=== PATIENT | male | born 1955 | race Caucasian/White ===

== ENCOUNTER 2023-11-21 19:23 | Inpatient (IN) | payer MEDICARE, OTHER ==
[~2023-11-21] VITALS: Ht 180.3 cm; Wt 95.8 kg
[2023-11-21 22:21] LABS: Basophils # (auto) 0.1 10 ^3/uL (0-0.2); Basophils % (auto) 2.2 % (0.0-2.0); Eosinophils # (auto) 0.2 10 ^3/uL (0-0.8); Eosinophils % (auto) 5.7 % (0.0-7.0); Hematocrit 28.7 % (41.0-53.0); Hemoglobin 9.3 g/dL (13.5-17.5); Lymphocytes # (auto) 0.3 10 ^3/uL (0.4-5.4); Lymphocytes % (auto) 9.4 % (10.0-50.0); Mean Corpuscular Hemoglobin 31.8 pg (28.0-32.0); Mean Corpuscular Hgb Conc. 32.5 g/dL (32.0-36.0); Mean Corpuscular Volume 97.9 fL (80.0-100.0); Monocytes # (auto) 0.5 10 ^3/uL (0-1.3); Monocytes % (auto) 13.9 % (0.0-12.0); Neutrophils # (auto) 2.4 10 ^3/uL (1.6-8.6); Neutrophils % (auto) 68.8 % (37.0-80.0); Nucleated Red Blood Cells % 0.2 %; Platelet Count (auto) 113 10^3/uL (140-450); Red Blood Cells 2.93 10^6/uL (4.5-5.90); White Blood Cell 3.5 10^3/uL (4.4-10.8)
[2023-11-21 22:35] LABS: Alanine Aminotransferase 11 U/L (7-40); Albumin 4.1 g/dL (3.2-4.8); Alkaline Phosphatase 74 U/L (46-116); Anion Gap 9 (5-15); Aspartate Aminotransferase 12 U/L (13-40); BUN/Creatinine Ratio 12.6 (10.0-20.0); Blood Urea Nitrogen 66 mg/dL (9-23); Calcium 10.1 mg/dL (8.7-10.4); Carbon Dioxide 30 mmol/L (20-31); Chloride 96 mmol/L (98-107); Glucose 119 mg/dL (74-106); Potassium 3.7 mmol/L (3.5-5.1); Sodium 135 mmol/L (136-145)
[2023-11-21 22:36] LABS: Bilirubin, Total 0.2 mg/dL (0.2-1.0); Total Protein 6.2 g/dL (5.7-8.2)
[2023-11-21 23:49] VITALS: PULSE 85; O2SAT 97
[2023-11-22] MEDS ORDERED: DEXTROSE (50%) 50ML SYRG IV PRN (04:30)
[2023-11-22] MEDS ORDERED: ACETAMINOPHEN 325 MG TAB PO PRN (04:30)
[2023-11-22] MEDS ORDERED: ONDANSETRON HCL 4 MG/2 ML VIAL IV PRN (04:30)
[2023-11-22] MEDS: InsuLIN REG 1unit/0.01ml Soln (100units/ml) SC SCH (07:00)
[2023-11-22] MEDS: ACCU-CHEK COMFORT CURVE STRIP VI SCH (07:10)
[2023-11-22 08:16] VITALS: PULSE 80; O2SAT 97
[2023-11-22] MEDS ORDERED: VALSARTAN 80 MG TAB PO SCH (10:00)
[2023-11-22] MEDS ORDERED: SACUBITRIL-VALSARTAN 24mg/26mg TAB PO SCH (10:00)
[2023-11-22] MEDS: CARVEDILOL 3.125 MG TAB PO SCH (10:14)
[2023-11-22] MEDS: CLOPIDOGREL BISULFATE 75 MG TAB PO SCH (10:15)
[2023-11-22] MEDS: ISOSORBIDE DINITRATE 10 MG TAB PO SCH (10:15)
[2023-11-22] MEDS: APIXABAN 5 MG TAB PO SCH (10:15)
[2023-11-22] MEDS: PIPERACILLIN-TAZOB 3.375GM 100 ML IV SCH (15:02)
[2023-11-22 19:45] VITALS: PULSE 74; RESP 20; O2SAT 90
[2023-11-22] MEDS: ATORVASTATIN 20 MG TAB PO SCH (21:40)
[2023-11-22 22:00] VITALS: BP 168/81; PULSE 68; RESP 68; TEMP 98.2; O2SAT 96
[2023-11-22 23:13] VITALS: RESP 16; O2SAT 95
[2023-11-22] MEDS ORDERED: ISOS20TA5 PO (23:25)
[2023-11-22] MEDS ORDERED: HYDR100T10 PO (23:25)
[2023-11-22] MEDS ORDERED: NIFE1TAB30 PO (23:25)
[2023-11-22] MEDS ORDERED: FERR1TAB17 PO (23:25)
[2023-11-22] MEDS ORDERED: PANT40T PO (23:25)
[2023-11-22] MEDS ORDERED: CLOP75TA70 PO (23:25)
[2023-11-22] MEDS ORDERED: CARV6.2551 PO (23:25)
[2023-11-22] MEDS ORDERED: INSU100I61 (23:25)
[2023-11-22] MEDS ORDERED: ATOR-47 PO (23:25)
[2023-11-22] MEDS ORDERED: BUDE1AER4 INH (23:25)
[2023-11-22] MEDS ORDERED: INSU100I67 SC (23:25)
[2023-11-22] MEDS ORDERED: VALS1TAB58 PO (23:25)
[2023-11-22] MEDS ORDERED: NITR0.4S29 SL (23:25)
[2023-11-23] VITALS (8 sets, daily range): BP systolic 148–169; BP diastolic 64–90; PULSE 63–86; RESP 18; TEMP 97.3–98.3; O2SAT 94–97
[2023-11-23] MEDS ORDERED: AMINLIQ64 PO (00:04)
[2023-11-23] MEDS ORDERED: APIX5TAB PO (00:04)
[2023-11-23] MEDS ORDERED: IPRA0.00 IN (00:04)
[2023-11-23] MEDS ORDERED: SACU1TAB PO (00:04)
[2023-11-23] MEDS ORDERED: ACET325T82 PO (00:04)
[2023-11-23] MEDS ORDERED: ALLO100T PO (00:04)
[2023-11-23] MEDS ORDERED: B-CO-5 PO (00:04)
[2023-11-23] MEDS ORDERED: MELA3TAB27 PO (00:04)
[2023-11-23] MEDS ORDERED: ALBUAER3 IN (00:04)
[2023-11-23] MEDS ORDERED: MAGN400T40 PO (00:04)
[2023-11-23 06:09] LABS: Basophils # (auto) 0 10 ^3/uL (0-0.2); Basophils % (auto) 1.4 % (0.0-2.0); Eosinophils # (auto) 0.2 10 ^3/uL (0-0.8); Eosinophils % (auto) 6.6 % (0.0-7.0); Hematocrit 27.6 % (41.0-53.0); Hemoglobin 9.3 g/dL (13.5-17.5); Lymphocytes # (auto) 0.3 10 ^3/uL (0.4-5.4); Mean Corpuscular Hemoglobin 32.5 pg (28.0-32.0); Mean Corpuscular Hgb Conc. 33.5 g/dL (32.0-36.0); Mean Corpuscular Volume 96.9 fL (80.0-100.0); Monocytes # (auto) 0.4 10 ^3/uL (0-1.3); Monocytes % (auto) 14.1 % (0.0-12.0); Neutrophils # (auto) 2.1 10 ^3/uL (1.6-8.6); Neutrophils % (auto) 68.9 % (37.0-80.0); Nucleated Red Blood Cells % 0.1 %; Platelet Count (auto) 117 10^3/uL (140-450); Red Blood Cells 2.85 10^6/uL (4.5-5.90); Red Cell Distribution Width 15.9 % (11.8-14.3)
[2023-11-23 06:15] LABS: Anion Gap 7 (5-15); Carbon Dioxide 33 mmol/L (20-31); Chloride 98 mmol/L (98-107); Potassium 3.8 mmol/L (3.5-5.1); Sodium 138 mmol/L (136-145)
[2023-11-23 06:16] LABS: Calcium 10.5 mg/dL (8.7-10.4)
[2023-11-23 06:21] LABS: BUN/Creatinine Ratio 9.8 (10.0-20.0); Glucose 94 mg/dL (74-106)
[2023-11-23 06:41] LABS: Blood Urea Nitrogen 43 mg/dL (9-23)
[2023-11-23 09:28] LABS: Hepatitis B Surface Antigen Negative (Negative)
[2023-11-23] MEDS ORDERED: IOHEXOL 300 MG/ML 100ML BOTTLE IJ ONE ×2 (09:28→15:36)
[2023-11-23 09:49] LABS: Hepatitis A Ab IgM Negative; Hepatitis B Core IgM Negative
[2023-11-23 09:50] LABS: Hepatitis C Antibody Negative (Negative)
[2023-11-23] MEDS: MUPIROCIN 2% OINT 15gm or 22gm FOR MRSA NARES EACHNOSTRI SCH (22:00)
[2023-11-23] MEDS: PIPERACILLIN-TAZOB 2.25GM 50 ML IV SCH (22:00)
[2023-11-24] VITALS (8 sets, daily range): BP systolic 155–182; BP diastolic 82–97; PULSE 68–86; RESP 16–18; TEMP 97.6–98.3; O2SAT 95–98
[2023-11-24] MEDS ORDERED: SODIUM CHL 0.9% 1000 ML BAG XX ONE (07:00)
[2023-11-24 07:17] LABS: Hematocrit 26.2 % (41.0-53.0); Hemoglobin 8.7 g/dL (13.5-17.5)
[2023-11-24] MEDS: EPOETIN ALFA-EPBX 4,000 UNIT/ML VIAL SC ONE (22:54)
[2023-11-25 01:00] VITALS: BP 161/81; PULSE 69; RESP 17; TEMP 97.7; O2SAT 96
[2023-11-25 05:00] VITALS: BP 150/82; PULSE 74; RESP 18; TEMP 98.3; O2SAT 95
[2023-11-25 08:45] VITALS: BP 152/79; PULSE 67; RESP 19; TEMP 97.5; O2SAT 98
[2023-11-25 13:00] VITALS: BP 131/71; PULSE 66; RESP 19; TEMP 97.9; O2SAT 98
[2023-11-25 16:37] VITALS: BP 163/78; PULSE 57; RESP 18; TEMP 98.1; O2SAT 98
[2023-11-25 21:33] VITALS: BP 162/79; PULSE 61; RESP 15; TEMP 98.1; O2SAT 99
[2023-11-26 00:28] VITALS: BP 170/78; PULSE 60; RESP 13; TEMP 97.7; O2SAT 100
[2023-11-26 05:00] VITALS: BP 141/73; PULSE 69; RESP 15; TEMP 97.8; O2SAT 100
[2023-11-26 09:00] VITALS: BP 167/87; PULSE 78; RESP 19; TEMP 97.9; O2SAT 98
[2023-11-26 13:00] VITALS: BP 143/73; PULSE 57; RESP 17; TEMP 97.4; O2SAT 99
[2023-11-26 16:44] VITALS: BP 159/76; PULSE 59; RESP 18; TEMP 97.9; O2SAT 99
[2023-11-26 17:31] LABS: Basophils # (auto) 0.1 10 ^3/uL (0-0.2); Basophils % (auto) 2.1 % (0.0-2.0); Eosinophils # (auto) 0.2 10 ^3/uL (0-0.8); Eosinophils % (auto) 8.4 % (0.0-7.0); Hematocrit 26.8 % (41.0-53.0); Hemoglobin 8.7 g/dL (13.5-17.5); Lymphocytes # (auto) 0.3 10 ^3/uL (0.4-5.4); Lymphocytes % (auto) 8.7 % (10.0-50.0); Mean Corpuscular Hemoglobin 31.7 pg (28.0-32.0); Mean Corpuscular Hgb Conc. 32.3 g/dL (32.0-36.0); Mean Corpuscular Volume 98.2 fL (80.0-100.0); Monocytes # (auto) 0.3 10 ^3/uL (0-1.3); Monocytes % (auto) 11.4 % (0.0-12.0); Neutrophils # (auto) 2.1 10 ^3/uL (1.6-8.6); Neutrophils % (auto) 69.4 % (37.0-80.0); Platelet Count (auto) 119 10^3/uL (140-450); Red Blood Cells 2.73 10^6/uL (4.5-5.90); Red Cell Distribution Width 15.9 % (11.8-14.3)
[2023-11-26 17:42] LABS: Chloride 98 mmol/L (98-107); Potassium 4.5 mmol/L (3.5-5.1); Sodium 136 mmol/L (136-145)
[2023-11-26 17:43] LABS: Anion Gap 8 (5-15); Carbon Dioxide 30 mmol/L (20-31)
[2023-11-26 17:44] LABS: Calcium 10.2 mg/dL (8.7-10.4)
[2023-11-26 17:48] LABS: BUN/Creatinine Ratio 10.6 (10.0-20.0); Blood Urea Nitrogen 68 mg/dL (9-23); Glucose 148 mg/dL (74-106)
[2023-11-26 21:00] VITALS: BP 148/68; PULSE 98; RESP 60; O2SAT 99
[2023-11-27] VITALS (8 sets, daily range): BP systolic 136–198; BP diastolic 66–107; PULSE 59–80; RESP 16–19; TEMP 97.4–98.6; O2SAT 91–99
[2023-11-27 06:56] LABS: Hemoglobin 9.6 g/dL (13.5-17.5)
[2023-11-27] MEDS ORDERED: SODIUM CHL 0.9% 1000 ML BAG XX ONE (07:00)
[2023-11-27] MEDS: EPOETIN ALFA-EPBX 10,000 UNIT/1ML VIAL SC ONE (20:59)
[2023-11-28] VITALS (7 sets, daily range): BP systolic 137–164; BP diastolic 59–89; PULSE 59–81; RESP 17–19; TEMP 36.7; O2SAT 92–100
[2023-11-28 15:16] LABS: COVID19 ANTIGEN SOFIA FIA NEGATIVE (NEGATIVE)
[2023-11-29] MEDS ORDERED: SODIUM CHL 0.9% 1000 ML BAG XX ONE (07:00)
[2023-11-29] MEDS ORDERED: EPOETIN ALFA-EPBX 10,000 UNIT/1ML VIAL SC ONE (21:00)
== END 2023-11-28 18:55 | DRG 314 ==
LOC: EDBD 19:23 → ER 19:23 → OVERFLOW 11-22 04:38 → WEST WING 11-22 22:00
PROVIDERS: ADMIT Family Medicine; ATTEND Family Medicine
PROC: 5A1D70Z Performance of Urinary Filtration, Intermittent, Less than 6 Hours Per Day (ICD-10-PCS; principal; 2023-11-22)
PROC: 5A1D70Z Performance of Urinary Filtration, Intermittent, Less than 6 Hours Per Day (ICD-10-PCS; 2023-11-24)
PROC: 5A1D70Z Performance of Urinary Filtration, Intermittent, Less than 6 Hours Per Day (ICD-10-PCS; 2023-11-27)
DX: T82.510A Breakdown (mechanical) of surgically created arteriovenous fistula, initial encounter (principal); J15.69 Pneumonia due to other Gram-negative bacteria; J96.21 Acute and chronic respiratory failure with hypoxia; N18.6 End stage renal disease; I13.2 Hypertensive heart and chronic kidney disease with heart failure and with stage 5 chronic kidney disease, or end stage renal disease; E44.0 Moderate protein-calorie malnutrition; Y71.2 Prosthetic and other implants, materials and accessory cardiovascular devices associated with adverse incidents; E11.22 Type 2 diabetes mellitus with diabetic chronic kidney disease; D63.1 Anemia in chronic kidney disease; E83.39 Other disorders of phosphorus metabolism; Z20.822 Contact with and (suspected) exposure to COVID-19; N28.1 Cyst of kidney, acquired; I50.9 Heart failure, unspecified; K80.20 Calculus of gallbladder without cholecystitis without obstruction; N40.0 Benign prostatic hyperplasia without lower urinary tract symptoms; Z99.2 Dependence on renal dialysis; I25.2 Old myocardial infarction; Z80.8 Family history of malignant neoplasm of other organs or systems; Z68.29 Body mass index [BMI] 29.0-29.9, adult; Y92.89 Other specified places as the place of occurrence of the external cause
CPT/HCPCS: 36415; 71250; 74176; 74178; 80048; 80053; 80074; 82270; 82962; 83605; 85014; 85018; 85025; 86141; 87081; 87426; 90935; 93005; 93971; 97163; G0378; J1815; J2543

== ENCOUNTER 2024-01-21 04:53 | Inpatient (IN) | payer MEDICARE ==
[~2024-01-21] VITALS: Ht 180.3 cm; Wt 89.0 kg
[~2024-01-21 04:53] MED LIST: ACET325T82 PO; ALBUAER3 IN; ALLO100T PO; AMINLIQ64 PO; APIX5TAB PO; ATOR-47 PO; B-CO-5 PO; BUDE1AER4 INH; CARV6.2551 PO; CLOP75TA70 PO; FERR1TAB17 PO; HYDR100T10 PO; INSU100I61; INSU100I67 SC; IPRA0.00 IN; ISOS20TA5 PO; MAGN400T40 PO; MELA3TAB27 PO; NIFE1TAB30 PO; NITR0.4S29 SL; PANT40T PO; SACU1TAB PO
--- NOTE | 2024-01-21 05:03 | ECG ---
[facility] Test Date: 2024-01-21 Test Time: 04:58:45 Pat Name: KAMAR COVARRUBIAS Department: ER Room: 0238T Gender: M Carpenter Inspector: CHELY : 1955 Requested By: EMERGENCY EMERGENCY Order Number: [id number] Reading MD: Brandon ePdro Measurements Intervals [place] Rate: 95 P: 238 LA: 198 QRS: 16 QRSD: 122 T: -5 QT: 343 QTc: 431 Interpretive Statements Sinus or ectopic atrial rhythm LVH with IVCD and secondary repol abnrm Inferoposterior infarct, recent Lateral infarct, age indeterminate Electronically Signed On 01-24-2024 16:11:20 PST by Brandon Pedro Please click the below link to view image of tracing.
--- NOTE | 2024-01-21 05:12 | ED.PDOC ---
History of Present Illness HPI Comments 68-year-old male who came to ER via EMS due to generalized weakness. Patient does have history of hypertension, diabetes, mi, CHF, end-stage renal disease, on dialysis every Monday and Monday. For the past few hours, noted the patient appears to be generally weak, had multiple episodes of vomiting, and had passage of blackish stools. Denies any acute abdominal pain or fever. No acute chest pains or shortness of breath Chief Complaint: General Weakness Time Seen by MD: 05:12 Reviewed Notes: Nurses Notes Allergies: Coded Allergies: NO KNOWN ALLERGIES (Unverified , 11/21/23) Home Meds Reported Medications Albuterol Sulfate (VENTOLIN MDI) 90 Mcg Ih, 2 PUFF IN Q6HPRN PRN for SHORTNESS OF BREATH, INH 11/23/23 Acetaminophen (Apap) 325 Mg Tab, 500 MG PO TID, TAB 11/23/23 Magnesium Oxide (MAGNESIUM OXIDE) 400 Mg Tab, 400 MG PO DAILY, TAB 11/23/23 B-Complex W/ C & Folic Acid (Kamilla-Yannick) Tab, 1 TAB PO DAILY, TAB 11/23/23 Sacubitril-Valsartan (Entresto 24-26 mg) 1 Tab Tab, 1 TAB PO BID, TAB 11/23/23 Allopurinol (Allopurinol) 100 Mg Tab, 1 TAB PO BID 11/23/23 Melatonin (KP MELATONIN) 3 Mg Tab, 10 MG PO HS, TAB 11/23/23 Amino Acids-Protein Hydrolysat (PRO-STAT) Liq, 30 ML PO BID, LIQ 11/23/23 Ipratropium-Albuterol (Ipratropium [place]/Albut) 1 John John, 1 JOHN IN Q4HPRN PRN for SHORTNESS OF BREATH, ML 11/23/23 Apixaban Base (ELIQUIS) 5 Mg Tab, 1 TAB PO Q12HR 11/23/23 Ferric Citrate (Auryxia) 210 Mg Tab, 2 TAB PO DAILY 11/22/23 Pantoprazole Sodium Sesquihydr (Pantoprazole Sodium) 40 Mg Tab, 1 TAB PO DAILY 11/22/23 Hydralazine Hcl (Hydralazine Hcl) 100 Mg Tab, 1 TAB PO TID 11/22/23 Nifedipine (Nifedipine Er) 60 Mg Tab, 1 TAB PO DAILY 11/22/23 Nitroglycerin (NTROSTAT SUBLINGUAL) 0.4 Mg Sl, 0.4 MG SL PRN, TAB *MAY REPEAT EVERY 5 MINUTES X 3 TOTAL IF NO RELIEF, INITIATE ANALGESIC THERAPY. NOTIFY PHYSICIAN *Do not crush. 11/22/23 Atorvastatin Calcium (ATORVASTATIN CALCIUM) 80 Mg Tab, 1 TAB PO DAILY 11/22/23 Budesonide-Formoterol Fumarate (Budesonide/Formoterol Fum 160-4.5 Mcg/Act) 1 Aer Aer, 2 PUFF INH Q12HR 11/22/23 Isosorbide Dinitrate (Isosorbide Dinitrate) 20 Mg Tab, 1 TAB PO DAILY 11/22/23 Clopidogrel Bisulfate (CLOPIDOGREL) 75 Mg Tab, 1 TAB PO DAILY 11/22/23 Carvedilol (Carvedilol) 6.25 Mg Tab, 1 TAB PO BID 11/22/23 Insulin Aspart (Novolog Flexpen Relion) 100 Unit/Ml Inj, DAILY 2-10 UNITS PER SLIDING SCALE 11/22/23 Insulin Detemir (Levemir Flexpen) 100 Unit/Ml Inj, 5 UNITS SC DAILY 11/22/23 Information Source: Patient, Emergency Med Personnel Mode of Arrival: EMS Severity: Moderate Timing: Hours Duration: Since onset Past Medical History PAST MEDICAL HISTORY: CHF, DM, ESRD, HTN, [place] Surgical History: PTCA Surgical History (Other): Dialysis every Monday Family History Family History: Reviewed,noncontributory to illness Social History Smoker: Non-Smoker Alcohol: Denies ETOH Use Drugs: Denies Drug Use Lives In: Home Constitutional: reports: weakness; denies: chills, diaphoresis, fatigue, fever, malaise, sweats, others EENTM: denies: blurred vision, double vision, ear bleeding, ear discharge, ear drainage, ear pain, ear ringing, eye pain, eye redness, hearing loss, mouth pain, mouth swelling, nasal discharge, nose bleeding, nose congestion, nose pain, photophobia, tearing, throat pain, throat swelling, voice changes, others Respiratory: denies: cough, hemoptysis, orthopnea, SOB at rest, shortness of breath, SOB with excertion, stridor, wheezing, others Cardiovascular: denies: chest pain, dizzy spells, diaphoresis, Dyspnea on exertion, edema, irregular heart beat, left arm pain, lightheadedness, palpitations, PND, syncope, others Gastrointestinal: reports: melena, vomiting; denies: abdomen distended, abdominal pain, blood streaked bowels, constipated, diarrhea, dysphagia, difficulty swallowing, hematemesis, nausea, poor appetite, poor fluid intake, rectal bleeding, rectal pain, others Genitourinary: denies: burning, dysuria, flank pain, frequency, hematuria, incontinence, penile discharge, penile sore, pain, testicle pain, testicle swelling, urgency, others Neurological: denies: dizziness, fainting, headache, left sided numbness, left sided weakness, numbness, paresthesia, pre-existing deficit, right sided numbness, right sided weakness, seizure, speech problems, tingling, tremors, weakness, others Musculoskeletal: denies: back pain, gout, joint pain, joint swelling, muscle pain, muscle stiffness, neck pain, others Integumetry: denies: bruises, change in color, change in hair/nails, dryness, laceration, lesions, lumps, rash, wounds, others Allergic/Immunocompromised: denies: Difficulty Healing, Frequent Infections, Hives, Itching, others Hematologic/Lymphatic: denies: anemia, blood clots, easy bleeding, easy bruising, swollen glands, others Endocrine: denies: excessive hunger, excessive sweating, excessive thirst, excessive urination, flushing, intolerance to cold, intolerance to heat, unexplained weight gain, unexplained weight loss, others Psychiatric: denies: anxiety, bipolar disorder, depression, hopeless, panic disorder, schizophrenia, sleepless, suicidal, others Physical Exam General Appearance: No Apparent Distress, Normal HEENT: Normal ENT Inspection, Pharynx Normal, TMs Normal Neck: Full Range of Motion, Non-Tender, Normal, Normal Inspection Respiratory: Chest Non-Tender, Lungs Clear, No Accessory Muscle Use, No Respiratory Distress, Normal Breath Sounds Cardiovascular: No Edema, No JVD, No Murmur, No Gallop, Normal Peripheral Pulses, Regular Rate/Rhythm Breast Exam: Deferred Gastrointestinal: No Organomegaly, Non Tender, No Pulsatile Mass, Normal Bowel Sounds, Soft Genitalia: Deferred Pelvic: Deferred Rectal: Deferred Extremities: No calf tenderness, Normal capillary refill, Normal inspection, Normal range of motion, Non-tender, No pedal edema Musculoskeletal : Apperance: Normal Neurologic: Alert, equipment operator II-XII nml as Tested, No Motor Deficits, Normal Affect, Normal Mood, No Sensory Deficits Cerebellar Function: Normal Reflexes: Normal Skin: Dry, Normal Color, Warm Lymphatic: No Adenopathy Was a procedure done? Was a procedure done?: No Differential Dx Considerations may include: Anemia, electrolyte imbalance, end-stage renal disease, gastritis, GI bleed, congestive heart failure X-Ray, Labs, Meds, VS Vital Signs Date Time Temp Pulse Resp B/P (MAP) Pulse Ox O2 Delivery O2 Flow Rate FiO2 01/21/24 05:02 98.8 93 18 164/99 (120) 97 01/21/24 04:58 95 Lab Test 01/21/24 05:20 Range/Units White Blood Count Pending Red Blood Count Pending Hemoglobin Pending Hematocrit Pending Mean Corpuscular Volume Pending Mean Corpuscular Hemoglobin Pending Mean Corpuscular Hemoglobin Concent Pending Red Cell Distribution Width Pending Platelet Count Pending Mean Platelet Volume Pending Neutrophils (%) (Auto) Pending Lymphocytes (%) (Auto) Pending Monocytes (%) (Auto) Pending Basophils (%) (Auto) Pending Neutrophils # (Auto) Pending Lymphocytes # (Auto) Pending Monocytes # (Auto) Pending Prothrombin Time Pending Prothrombin Time INR Pending Activated Partial Thromboplast Time Pending Sodium Level Pending Potassium Level Pending Chloride Level Pending Carbon Dioxide Level Pending Anion Gap Pending Blood Urea Nitrogen Pending Creatinine Pending Glomerular Filtration Rate Calc Pending BUN/Creatinine Ratio Pending Serum Glucose Pending Calcium Level Pending Magnesium Level Pending Total Bilirubin Pending Aspartate Amino Transferase (AST) Pending Alanine Aminotransferase (ALT) Pending Alkaline Phosphatase Pending Total Protein Pending Albumin Pending Time of 1ST Reevaluation: 05:05 Reevaluation 1ST: Unchanged Time of 2ND Reevaluation: 05:30 Reevaluation 2ND: Unchanged Patient Education/Counseling: Diagnosis, Treatment Family Education/Counseling: No Family Present Departure 1 Departure Time of Disposition: 05:30 Impression: Primary Impression: Renal failure Additional Impressions: Vomiting and diarrhea Dehydration Disposition: ADMITTED INPATIENT Condition: Guarded Critical Care Note Critical Care Time?: Yes (35 min-critical care time only) Stability Stability form required: No Heart Score Heart Score: Heart Score Response (Comments) Value History Moderate Suspicious 1 EKG Repolarization Disturb 1 Age >65 2 Risk Factors >3 or Hx ASHD 2 Troponin Normal limit 0 Total 6 I personally scribed for RACHID ROBERTS MD ([email or web address]) on 01/21/24 at 05:12. Electronically submitted by Mk Kramer ([email or web address]). RACHID ROBERTS MD Jan 21, 2024 05:12
[2024-01-21] MEDS: ONDANSETRON HCL 4 MG/2 ML VIAL IV ONE (05:15)
[2024-01-21 05:34] LABS: Basophils # (auto) 0 10 ^3/uL (0-0.2); Basophils % (auto) 0.4 % (0.0-2.0); Eosinophils # (auto) 0.1 10 ^3/uL (0-0.8); Eosinophils % (auto) 1.3 % (0.0-7.0); Hematocrit 45.5 % (41.0-53.0); Hemoglobin 14.8 g/dL (13.5-17.5); Lymphocytes # (auto) 0 10 ^3/uL (0.4-5.4); Lymphocytes % (auto) 0.5 % (10.0-50.0); Mean Corpuscular Hemoglobin 31.6 pg (28.0-32.0); Mean Corpuscular Hgb Conc. 32.5 g/dL (32.0-36.0); Mean Corpuscular Volume 97.2 fL (80.0-100.0); Monocytes # (auto) 0.3 10 ^3/uL (0-1.3); Monocytes % (auto) 4.7 % (0.0-12.0); Neutrophils # (auto) 6.5 10 ^3/uL (1.6-8.6); Neutrophils % (auto) 93.1 % (37.0-80.0); Nucleated Red Blood Cells % 0.1 %; Platelet Count (auto) 137 10^3/uL (140-450); Red Blood Cells 4.68 10^6/uL (4.5-5.90); Red Cell Distribution Width 15.4 % (11.8-14.3)
[2024-01-21] MEDS: SODIUM CHLORIDE 0.9% 250 ML IV ONE (05:44)
[2024-01-21 05:51] LABS: INR 1.08 (0.9-1.15); Partial Thromboplastin Time 29.9 SEC (24.5-34.5); Prothrombin Time 11.4 sec (9.3-11.8)
[2024-01-21 06:08] VITALS: PULSE 100; RESP 17; O2SAT 97
[2024-01-21 06:19] LABS: Alanine Aminotransferase 30 U/L (7-40); Albumin 4.8 g/dL (3.2-4.8); Alkaline Phosphatase 115 U/L (46-116); Anion Gap 11 (5-15); Aspartate Aminotransferase 17 U/L (13-40); BUN/Creatinine Ratio 10.2 (10.0-20.0); Bilirubin, Total 0.4 mg/dL (0.2-1.0); Blood Urea Nitrogen 49 mg/dL (9-23); Calcium 11.3 mg/dL (8.7-10.4); Carbon Dioxide 28 mmol/L (20-31); Chloride 98 mmol/L (98-107); Glucose 139 mg/dL (74-106); Potassium 4.3 mmol/L (3.5-5.1); Sodium 137 mmol/L (136-145); Total Protein 7.7 g/dL (5.7-8.2)
--- NOTE | 2024-01-21 07:50 | DVHHP2 ---
History of Present Illness Reason for Visit: Generalized weakness History of Present Illness This 68-year-old male presents in the ED via EMS with a chief complaint of generalized weakness. The patient reports nausea and diarrhea started early this morning causing generalized weakness for which prompted the patient to call 911. The patient denies abdominal pain, hematemesis, or melena although patient states noted blackish stools. Past medical history of ESRD on HD MWF, CHF, CAD, hypertension, gout, and diabetes. Past Medical History As stated in HPI Past Surgical History PTCA Family History Reviewed, non-contributory to the management of this case. Past Social History The patient lives at home, denies smoking, alcohol or illicit drugs abuse. Review of Systems Constitutional: Yes: Weakness; No: Fever, Chills, Sweats, Malaise, Other Eyes: No: Pain, Vision change, Conjunctivae inflammation, Eyelid inflammation, Other, Redness ENT: No: Ear pain, Ear discharge, Nose pain, Nose discharge, Nose congestion, Mouth pain, Mouth swelling, Throat pain, Throat swelling, Other Respiratory: No: Cough, Dry, Shortness of breath, SOB with excertion, Wheezing, Hemoptysis, Pleuritic Pain, Sputum, Wheezing, Other Cardiovascular: No: Chest Pain, Palpitations, Orthopnea, Paroxysmal Noc. Dyspnea, Edema, Lt Headedness, Other Gastrointestinal: Nausea, Vomiting, Diarrhea; No: Abdominal Pain, Constipation, Melena, Hematochezia, Other Genitourinary: No Dysuria, No Frequency, No Incontinence, No Hematuria, No Retention, No Other Musculoskeletal: No: other, neck pain, shoulder pain, arm pain, back pain, hand pain, leg pain, foot pain Skin: No: Rash, Lesions, Jaundice, Bruising, Other Neurological: Weakness; No: Numbness, Incoordination, Change in speech, Confusion, Seizures, Other Allergies: Coded Allergies: NO KNOWN ALLERGIES (Unverified , 11/21/23) Exam Vital Signs Vital Signs Date Time Temp Pulse Resp B/P (MAP) Pulse Ox O2 Delivery O2 Flow Rate FiO2 01/21/24 07:02 98.1 109 16 125/76 (92) 97 98.1 01/21/24 06:08 Nasal Cannula* 2 28 General Appearance: Alert, Oriented X3, Cooperative, mild distress HEENT: Atraumatic, PERRLA, EOMI Respiratory: Clear to auscultation, Normal air movement Cardiovascular: Regular rate, Normal S1, Normal S2 Abdominal: Normal bowel sounds, Soft, No tenderness Extremities: No clubbing, Other (bilateral LE +1 edema) Skin: No rashes, No breakdown, No significant lesion Neuro: Normal speech, Normal tone Psych/Mental Status: Mental status NL Labs/Xrays Labs Test 01/21/24 05:20 Range/Units White Blood Count 7.0 4.4-10.8 10^3/uL Red Blood Count 4.68 4.5-5.90 10^6/uL Hemoglobin 14.8 13.5-17.5 g/dL Hematocrit 45.5 41.0-53.0 % Mean Corpuscular Volume 97.2 80.0-100.0 fL Mean Corpuscular Hemoglobin 31.6 28.0-32.0 pg Mean Corpuscular Hemoglobin Concent 32.5 32.0-36.0 g/dL Red Cell Distribution Width 15.4 H 11.8-14.3 % Platelet Count 137 L 140-450 10^3/uL Mean Platelet Volume 7.7 6.9-10.8 fL Neutrophils (%) (Auto) 93.1 H 37.0-80.0 % Lymphocytes (%) (Auto) 0.5 L 10.0-50.0 % Monocytes (%) (Auto) 4.7 0.0-12.0 % Eosinophils (%) (Auto) 1.3 0.0-7.0 % Basophils (%) (Auto) 0.4 0.0-2.0 % Neutrophils # (Auto) 6.5 1.6-8.6 10 ^3/uL Lymphocytes # (Auto) 0 L 0.4-5.4 10 ^3/uL Monocytes # (Auto) 0.3 0-1.3 10 ^3/uL Eosinophils # (Auto) 0.1 0-0.8 10 ^3/uL Basophils # (Auto) 0 0-0.2 10 ^3/uL Nucleated Red Blood Cells 0.1 % Prothrombin Time 11.4 9.3-11.8 sec Prothrombin Time INR 1.08 0.9-1.15 Activated Partial Thromboplast Time 29.9 24.5-34.5 SEC Sodium Level 137 136-145 mmol/L Potassium Level 4.3 3.5-5.1 mmol/L Chloride Level 98 98-107 mmol/L Carbon Dioxide Level 28 20-31 mmol/L Anion Gap 11 5-15 Blood Urea Nitrogen 49 H 9-23 mg/dL Creatinine 4.80 H 0.700-1.30 mg/dL Glomerular Filtration Rate Calc 12 >90 mL/min BUN/Creatinine Ratio 10.2 10.0-20.0 Serum Glucose 139 H 74-106 mg/dL Calcium Level 11.3 H 8.7-10.4 mg/dL Magnesium Level 2.0 1.6-2.6 mg/dL Total Bilirubin 0.4 0.2-1.0 mg/dL Aspartate Amino Transferase (AST) 17 13-40 U/L Alanine Aminotransferase (ALT) 30 7-40 U/L Alkaline Phosphatase 115 46-116 U/L Total Protein 7.7 5.7-8.2 g/dL Albumin 4.8 3.2-4.8 g/dL Assessment/Plan Assessment/Plan # Generalized weakness 2/2 nausea and diarrhea # Rule out Covid #Rule out GI bleed Admit to telemetry unit Hold antiplatelets/anti coag until FOBT PPI Check for COVID Check for occult C diff Antiemetics # ESRD on HD M/W/F Consult Dr. Valera for treatment # hypotension # CAD s/p PCI # CHF statins, plavix, Entresto Daily wt Strict I & O # COPD Med neb DVT and PPI prophylaxis Medical plan discussed with patient and RN Plan discussed with: Patient Date of Service: Jan 21, 2024 Billing Provider: TANIKA BOLANOS Common Visit Codes: [id number] INP/OBS CARE (HIGH) TANIKA BOLANOS Jan 21, 2024 07:50
[2024-01-21 07:53] VITALS: PULSE 113; RESP 21; O2SAT 96
[2024-01-21] MEDS ORDERED: ONDANSETRON HCL 4 MG/2 ML VIAL IV PRN (08:00)
[2024-01-21] MEDS ORDERED: DEXTROSE (50%) 50ML SYRG IV PRN (08:30)
[2024-01-21 09:01] LABS: Triglycerides 90 mg/dL (< 150)
[2024-01-21 09:02] LABS: LDL Cholesterol 45 mg/dL (< 100)
[2024-01-21 09:03] LABS: HDL Cholesterol 41 mg/dL (40-59)
[2024-01-21 09:04] LABS: Cholesterol 107 mg/dL (< 200)
--- NOTE | 2024-01-21 09:39 | DVH ---
CLINICAL INFORMATION: 68 years old, Male; shortness of breath. TECHNIQUE: Single AP portable chest radiograph was obtained. COMPARISON: None FINDINGS: Lungs: Low lung volumes. Possible small left pleural effusion with overlying atelectasis and consolid ation. Mild atelectasis in the right lung base.. Cardiac: Heart size is within normal limits. Pulmonary vasculature: Mildly prominent pulmonary vasculature. Mediastinum/arsalan: Unremarkable. Bones: No acute osseous abnormality identified. Other: No other significant findings. IMPRESSION: 1. Suspected small left pleural effusion with overlying atelectasis and consolidation. 2. Mild atelectasis in the right lung base. 3. Mildly prominent pulmonary vasculature May suggest a degree of pulmonary vascular congestion.
[2024-01-21] MEDS: PANTOPRAZOLE 40 MG TAB PO SCH (10:00)
[2024-01-21] MEDS ORDERED: APIXABAN 5 MG TAB PO SCH (10:00)
[2024-01-21] MEDS ORDERED: ENOXAPARIN SOD 40 MG/0.4 ML SYRINGE SC SCH (10:00)
[2024-01-21] MEDS ORDERED: CLOPIDOGREL BISULFATE 75 MG TAB PO SCH (10:00)
[2024-01-21] MEDS: Pro-Stat SF 30ml Vanilla PO SCH (10:00)
[2024-01-21] MEDS: ALBUTEROL SULF 2.5 MG/0.5ML(0.5%) NEB SOLN NEB PRN (10:35)
[2024-01-21] MEDS: IPRATROPIUM BROM 0.5 MG/2.5ML INH SOL NEB PRN (10:35)
[2024-01-21] MEDS: SACUBITRIL-VALSARTAN 24mg/26mg TAB PO SCH (10:41)
[2024-01-21] MEDS: PANTOPRAZOLE 40 MG/10 ML VIAL INJ IV SCH (10:41)
[2024-01-21] MEDS: ALLOPURINOL 100 MG TAB PO SCH (10:41)
[2024-01-21] MEDS: ACCU-CHEK COMFORT CURVE STRIP VI SCH (11:32)
[2024-01-21] MEDS: InsuLIN REG 1unit/0.01ml Soln (100units/ml) SC SCH (11:45)
[2024-01-21 14:30] VITALS: PULSE 91; RESP 17; O2SAT 95
[2024-01-21 14:40] VITALS: BP 106/60; PULSE 91; RESP 17; TEMP 98.3; O2SAT 94
--- NOTE | 2024-01-21 16:23 | DVHPN2 ---
Subjective No more nausea/vomiting/diarrhea Reviewed: Care Plan, H&P, Labs, Medications, Previous Orders, Radiology, Other (Consultation) Changes from previous H/P or p: Changes Objective Vitals Vital Signs Date Time Temp Pulse Resp B/P (MAP) Pulse Ox O2 Delivery O2 Flow Rate FiO2 01/21/24 14:40 98.3 91 17 106/60 94 2.0 28 98.3 01/21/24 14:30 Nasal Cannula* General Appearance: Alert, Oriented X3, Cooperative, No acute distress HEENT: Atraumatic Lungs: Other (Decreased air entry bilateral with occasional scattered crackles) Cardiovascular: Regular rate, Normal S1, Normal S2, No murmurs Abdomen: Normal bowel sounds, Soft, Other (Diffuse tenderness) Extremities: Other (Right arm AV fistula with good bruit/thrill) Neuro: Normal speech, Cranial nerves 3-12 NL Psych/Mental Status: Mental status NL, Mood NL Medications Current Medications Medications Dose Ordered Sig/Mckenzie Route Start Time Stop Time Status Last Admin Dose Admin Ondansetron HCl 4 mg Q4HP PRN IV 01/21/24 08:00 Diagnostic Test (Pha) 1 strip ACHS 01/21/24 11:30 01/21/24 11:32 1 STRIP Insulin Human Regular ACHS SC 01/21/24 11:30 01/21/24 11:45 2 UNITS Dextrose 50 ml UD PRN IV 01/21/24 08:30 Allopurinol 100 mg BID PO 01/21/24 10:00 01/21/24 10:41 100 MG Amino Acid Protein 30 ml BID PO 01/21/24 10:00 Pantoprazole Sodium 40 mg DAILY PO 01/21/24 10:00 Hold Sacubitril/ Valsartan 1 tab BID PO 01/21/24 10:00 01/21/24 10:41 1 TAB Atorvastatin Calcium 80 mg HS PO 01/21/24 22:00 Multivit/Ca Carb/ B Cmplx/FA/Prenat 1 tab DAILY PO 01/22/24 10:00 Patient Own Medication 2 puff Q12HR PO 01/21/24 22:00 Carvedilol 6.25 mg BID PO 01/21/24 22:00 Patient Own Medication 2 tab DAILY PO 01/22/24 10:00 Hydralazine HCl 100 mg TID PO 01/21/24 22:00 Insulin Glargine 5 units HS SC 01/22/24 22:00 Isosorbide Dinitrate 20 mg DAILY PO 01/22/24 10:00 Magnesium Oxide 400 mg DAILY PO 01/22/24 10:00 Melatonin 10 mg HS PO 01/21/24 22:00 Patient Own Medication 1 tab DAILY PO 01/21/24 10:00 UNV Pantoprazole Sodium 40 mg DAILY IV 01/21/24 10:00 01/21/24 10:41 40 MG Albuterol 2.5 mg Q4HPRN PRN NEB 01/21/24 08:45 01/21/24 10:35 2.5 MG Ipratropium [place] 0.5 mg Q4HPRN PRN NEB 01/21/24 08:45 01/21/24 10:35 0.5 MG Laboratory Results Laboratory Tests 01/21/24 05:20 Chemistry Test 01/21/24 05:20 Albumin 4.8 g/dL (3.2-4.8) Calcium Level 11.3 mg/dL (8.7-10.4) H Magnesium Level 2.0 mg/dL (1.6-2.6) Total Protein 7.7 g/dL (5.7-8.2) Coagulation Test 01/21/24 05:20 Prothrombin Time 11.4 sec (9.3-11.8) Prothrombin Time INR 1.08 (0.9-1.15) Activated Partial Thromboplast Time 29.9 SEC (24.5-34.5) Lipid panel Test 01/21/24 05:20 Cholesterol Level 107 mg/dL (< 200) HDL Cholesterol 41 mg/dL (40-59) Triglycerides Level 90 mg/dL (< 150) LFT Test 01/21/24 05:20 Alanine Aminotransferase (ALT) 30 U/L (7-40) Alkaline Phosphatase 115 U/L (46-116) Aspartate Amino Transferase (AST) 17 U/L (13-40) Total Bilirubin 0.4 mg/dL (0.2-1.0) HgA1c, TSH Test 01/21/24 05:20 Hemoglobin A1c 5.2 % A1C (<5.7) Labs and/or images reviewed: Labs reviewed by me, Image(s) reviewed by me Assessment/Plan Assessment/Plan A 68-year-old male patient; multiple comorbidities; who presented to the emergency department with chills, nausea, vomiting, and diarrhea. #Suspected abdominal infection in immunocompromised patient Ordered abdomen/pelvis CT without contrast Ordered blood cultures COVID-19 negative Stool studies pending Started on IV antibiotics Continue monitoring # ESRD on HD M// Dr. Valera is following; hemodialysis as per Nephrology Continue monitoring # CAD s/p PCI # hypertensive heart disease with congestive diastolic and systolic heart failure; not in exacerbation Continue statins, clopidogrel, and Entresto Daily weight with strict input and output Continue monitoring blood pressure and adjust antihypertensive medications accordingly # COPD; not in exacerbation; on home oxygen therapy 2 to 3 liter/minute via nasal cannula Continue oxygen therapy as needed Continue home nebulizers as indicated #Diabetes mellitus type 2; controlled with A1c of 5.2 % Continue home glargine Continue insulin sliding scale with hypoglycemia protocol Continue monitoring #Thrombocytopenia Chronic; unclear etiology No signs/symptoms of active bleeding Continue monitoring Goals of care discussed for 20 minutes; full code This medical document was created using an electronic medical record system with computerized dictation system. Although this document has been carefully reviewed, there might still be some phonetic and typographical errors. These areas are purely typographical due to imperfections of the software programs, and do not reflect any compromise in the patient's medical care. Plan discussed with: Patient, Other (Nurse) Date of Service: Jan 21, 2024 Billing Provider: JOSELO SCHMITT MD Common Visit Codes: [id number] INP/OBS CARE(HIGH) Secondary Visit Codes: [id number] CARE PLAN 30 MINUTES (20 minutes) JOSELO SCHMITT MD Jan 21, 2024 16:22
[2024-01-21 17:55] LABS: COVID19 ANTIGEN SOFIA FIA NEGATIVE (NEGATIVE)
[2024-01-21 18:50] VITALS: O2SAT 97
[2024-01-21 19:32] VITALS: PULSE 76; RESP 20; O2SAT 95
--- NOTE | 2024-01-21 21:39 | DVHINCON2 ---
DATE OF CONSULTATION: 01/21/2024 CONSULTING PHYSICIAN: Dr. Cedeno. REASON FOR CONSULTATION: Management of dialysis. HISTORY OF PRESENT ILLNESS: The patient is a 68-year-old gentleman who is one of our chronic dialysis patient who came to the hospital this morning complaining of one day of vomiting and diarrhea, possibly black stools. He was feeling very weak and decided to call the ambulance and came to the hospital. His last dialysis was on Monday. He denies any fever. No other complaints. PAST MEDICAL HISTORY: Significant for longstanding hypertension, diabetes, end-stage renal disease, congestive heart failure, coronary artery disease, hypertension, gout and anemia. SOCIAL HISTORY: The patient denies smoking cigarettes, drinking alcohol or using illicit drugs. MEDICATIONS: In the hospital include insulin, pantoprazole, albuterol, dextrose and Zofran. PHYSICAL EXAMINATION: VITAL SIGNS: Blood pressure is 119/68, heart rate 89, respirations 16, temperature 97. GENERAL: The patient is in no acute distress, alert and oriented x3. HEENT: Shows pale oral mucosa and conjunctivae. NECK: No jugular venous distention, palpable thyroid, or lymphadenopathy. LUNGS: Show diminished air entry at the bases. CARDIOVASCULAR: Shows regular rate. There is 2/6 systolic murmur. ABDOMEN: Soft, mildly distended. Bowel sounds are increased in intensity and frequency. There are no ascites. No organomegalies, no ascites. EXTREMITIES: Show no clubbing, cyanosis. There is trace edema. NEUROLOGIC: Nonfocal. LABORATORY FINDINGS: Sodium 137, potassium 4.3, bicarbonate 28, BUN 49, creatinine 4.8, glucose 139. Hemoglobin 14.8, white blood cell count 7. Chest x-ray was unremarkable except for very mild left pleural effusion, mild atelectasis. ASSESSMENT AND PLAN: 1. End-stage renal disease. The patient appears to be stable from the renal standpoint. There is no need for dialysis today. We will reevaluate him in the morning. He may or may not need dialysis tomorrow depending on his fluid balance since he had significant diarrhea and fluid losses and he has not been eating well. There is no immediate need for ultrafiltration at this time. 2. Gastroenteritis, rule out viral versus bacterial. Empiric antibiotic treatment. Rule out COVID. 3. History of diabetes. Continue with insulin. Home medications. 4. Hypertension. Currently, the patient is actually slightly hypotensive. We will hold his blood pressure medications. Provide him with gentle hydration with normal saline and intravenous fluids. Recommend to recheck basic metabolic panel tomorrow to decide if he needs dialysis tomorrow or maybe on Monday. Thank you for the consultation. MD LAYTON Pop/MATTHEW TID: [id number] RECEIPT: [id number]
[2024-01-21] MEDS: FORMOTEROL PO SCH (22:00)
[2024-01-21] MEDS: BUDESONIDE PO SCH (22:00)
[2024-01-21] MEDS: MELATONIN 5 MG TAB PO SCH (22:08)
[2024-01-21] MEDS: ATORVASTATIN 20 MG TAB PO SCH (22:09)
[2024-01-21] MEDS: CARVEDILOL 3.125 MG TAB PO SCH (22:10)
[2024-01-21] MEDS: hydrALAZINE HCL 25 MG TAB PO SCH (22:14)
[2024-01-21] MEDS: cefTRIAXone 1GM/50ML D5W 50 ML IV ONE (22:44)
[2024-01-21] MEDS: metroNIDAZOLE 500MG/100ML 100 ML IV ONE (23:15)
[2024-01-22] VITALS (10 sets, daily range): BP systolic 123–154; BP diastolic 32–58; PULSE 59–80; RESP 16–18; TEMP 97.6–98.3; O2SAT 92–97
[2024-01-22] MEDS: metroNIDAZOLE 500MG/100ML 100 ML IV SCH (06:00)
[2024-01-22 08:50] LABS: Alanine Aminotransferase 19 U/L (7-40); Albumin 3.6 g/dL (3.2-4.8); Alkaline Phosphatase 77 U/L (46-116); Anion Gap 11 (5-15); Aspartate Aminotransferase 16 U/L (13-40); BUN/Creatinine Ratio 9.4 (10.0-20.0); Bilirubin, Total 0.4 mg/dL (0.2-1.0); Calcium 10.2 mg/dL (8.7-10.4); Carbon Dioxide 22 mmol/L (20-31); Chloride 100 mmol/L (98-107); Glucose 98 mg/dL (74-106); Potassium 4.6 mmol/L (3.5-5.1)
[2024-01-22 08:54] LABS: Blood Urea Nitrogen 59 mg/dL (9-23); Sodium 133 mmol/L (136-145)
[2024-01-22 10:17] LABS: Hematocrit 39.9 % (41.0-53.0); Hemoglobin 12.7 g/dL (13.5-17.5); Mean Corpuscular Hemoglobin 30.9 pg (28.0-32.0); Mean Corpuscular Hgb Conc. 31.9 g/dL (32.0-36.0); Mean Corpuscular Volume 96.8 fL (80.0-100.0); Platelet Count (auto) 107 10^3/uL (140-450); Red Blood Cells 4.12 10^6/uL (4.5-5.90); Red Cell Distribution Width 15.5 % (11.8-14.3); White Blood Cell 2.2 10^3/uL (4.4-10.8)
[2024-01-22 10:19] LABS: Band Neutrophils % (manual) 0; Basophils % (manual) 0 (0.0-2.0); Blast Cells 0; Eosinophils % (manual) 0 (0-7); Metamyelocytes % 0; Myelocytes % 0; Promyelocytes % 0; Reactive Lymphocytes 0
[2024-01-22] MEDS: NIFEdipine ER 30 MG TAB PO SCH (10:29)
[2024-01-22] MEDS: MAGNESIUM OXIDE 400 MG TAB PO SCH (10:29)
[2024-01-22] MEDS: ISOSORBIDE DINITRATE 10 MG TAB PO SCH (10:30)
[2024-01-22] MEDS: B-COMPLEX W/ C & FOLIC ACID(NEPHROVITE TAB) PO SCH (10:30)
[2024-01-22 11:34] LABS: Lymphocytes % (manual) 18 (10.0-50.0); Monocytes % (manual) 8 (0-12); Platelet Estimate Decreased
--- NOTE | 2024-01-22 11:57 | DVH ---
Exam: CT CT AB PEL WO CON-NO ORAL OR IV History: Nausea, vomiting, diarrhea in immunocompromised patient. Comparison Study: CT CT AB PELVIS W WO CON-IV ONLY on DOS: 11/23/23, CT CT AB PEL WO CON-NO ORAL OR I V on DOS: 11/22/23 Technique: Multidetector spiral CT of the abdomen and pelvis was performed from lung bases to pubic symphysis. Imaging was performed without IV contrast. Axial, coronal and sagittal multiplanar reform ats were obtained from the axial data set by the technologist. Radiation dose : Abdomen/Pelvis: CTDIvol 12 mGy, DLP 843 mGy*cm. Findings: Evaluation of solid organs is limited due to lack of intravenous contrast use. Lung Bases: Atelectasis and consolidation in the visualized lung bases. Liver: The liver is normal in size. No focal lesions. Gallbladder and biliary Tree: Cholelithiasis noted without secondary findings of cholecystitis or rk iary obstruction. Spleen: Unremarkable Pancreas: The pancreas is grossly normal in appearance. Adrenal Glands: Unremarkable Kidneys: Kidneys are atrophic. There are coarse calcifications in the left kidney. There are bilate ral renal cysts including a hyperdense left renal cyst. No hydronephrosis. Bladder: Grossly unremarkable for degree of distention. Bowel: The stomach is grossly normal in appearance. Small bowel and colon are normal in caliber and d istribution. Normal appendix is visualized in the right lower quadrant without findings of appendici tis. Ascites: Absent Lymphadenopathy: No mesenteric, retroperitoneal or periportal lymphadenopathy. Abdominal wall and Mesentery: Colon containing umbilical hernia Vasculature: Calcified atherosclerotic disease. Pelvic Organs: Prostate is enlarged. Musculoskeletal: No aggressive focal bony lesions, acute fractures or dislocation. IMPRESSION: 1. No acute abdominal or pelvic findings. Cholelithiasis. Atrophic kidneys. Bilateral renal cysts. Coarse calcifications in the left kidney. No hydronephrosis. Colon containing umbilical hernia. No ev idence of obstruction. Prostatomegaly. Bibasilar atelectasis and consolidation. Radiation optimization: All CT scans at this facility use at least one of these dose optimization hay hniques: Automated exposure control mA and/or kV adjustment per patient size (includes targeted exams where dose is matched to clinical indication) or iterative reconstruction. HS:Y
--- NOTE | 2024-01-22 14:45 | DVHPN2 ---
Reviewed: Care Plan, H&P, Labs, Medications, Previous Orders, Radiology, Other (Consultation) Changes from previous H/P or p: No Changes Objective Vitals Vital Signs Date Time Temp Pulse Resp B/P (MAP) Pulse Ox O2 Delivery O2 Flow Rate FiO2 01/22/24 14:39 107/62 01/22/24 13:00 98.3 70 16 95 98.3 01/22/24 08:10 Nasal Cannula* 3 32 Intake/Output Intake and Output 01/22/24 07:00 Intake Total 350 ml Balance 350 ml Intake Oral 100 ml IV Total 250 ml General Appearance: Alert, Oriented X3, Cooperative, No acute distress HEENT: Atraumatic Lungs: Other (Decreased air entry bilateral with occasional scattered crackles) Cardiovascular: Regular rate, Normal S1, Normal S2, No murmurs Abdomen: Normal bowel sounds, Soft, Other (Diffuse tenderness) Extremities: Other (Right arm AV fistula with good bruit/thrill) Neuro: Normal speech, Cranial nerves 3-12 NL Psych/Mental Status: Mental status NL, Mood NL Medications Current Medications Medications Dose Ordered Sig/Mckenzie Route Start Time Stop Time Status Last Admin Dose Admin Ondansetron HCl 4 mg Q4HP PRN IV 01/21/24 08:00 Diagnostic Test (Pha) 1 strip ACHS 01/21/24 11:30 01/22/24 11:30 1 STRIP Insulin Human Regular ACHS SC 01/21/24 11:30 01/22/24 12:40 2 UNITS Dextrose 50 ml UD PRN IV 01/21/24 08:30 Allopurinol 100 mg BID PO 01/21/24 10:00 01/22/24 10:30 100 MG Amino Acid Protein 30 ml BID PO 01/21/24 10:00 Pantoprazole Sodium 40 mg DAILY PO 01/21/24 10:00 01/22/24 10:30 40 MG Sacubitril/ Valsartan 1 tab BID PO 01/21/24 10:00 01/22/24 10:27 1 TAB Atorvastatin Calcium 80 mg HS PO 01/21/24 22:00 01/21/24 22:09 80 MG Multivit/Ca Carb/ B Cmplx/FA/Prenat 1 tab DAILY PO 01/22/24 10:00 01/22/24 10:30 1 TAB Patient Own Medication 2 puff Q12HR PO 01/21/24 22:00 Carvedilol 6.25 mg BID PO 01/21/24 22:00 01/22/24 10:27 6.25 MG Patient Own Medication 2 tab DAILY PO 01/22/24 10:00 Hydralazine HCl 100 mg TID PO 01/21/24 22:00 01/22/24 14:39 100 MG Insulin Glargine 5 units HS SC 01/22/24 22:00 Isosorbide Dinitrate 20 mg DAILY PO 01/22/24 10:00 01/22/24 10:30 20 MG Magnesium Oxide 400 mg DAILY PO 01/22/24 10:00 01/22/24 10:29 400 MG Melatonin 10 mg HS PO 01/21/24 22:00 01/21/24 22:08 10 MG Nifedipine 60 mg DAILY PO 01/22/24 10:00 01/22/24 10:29 60 MG Albuterol 2.5 mg Q4HPRN PRN NEB 01/21/24 08:45 01/21/24 10:35 2.5 MG Ipratropium [place] 0.5 mg Q4HPRN PRN NEB 01/21/24 08:45 01/21/24 10:35 0.5 MG Ceftriaxone Sodium 50 ml @ 100 mls/hr DAILY@2300 IV 01/22/24 23:00 Metronidazole 100 ml @ 100 mls/hr Q8H IV 01/22/24 07:00 01/22/24 06:00 100 MLS/HR Laboratory Results Laboratory Tests 01/22/24 07:53 01/22/24 09:13 Chemistry Test 01/22/24 07:53 Albumin 3.6 g/dL (3.2-4.8) Calcium Level 10.2 mg/dL (8.7-10.4) Total Protein 6.0 g/dL (5.7-8.2) LFT Test 01/22/24 07:53 Alanine Aminotransferase (ALT) 19 U/L (7-40) Alkaline Phosphatase 77 U/L (46-116) Aspartate Amino Transferase (AST) 16 U/L (13-40) Total Bilirubin 0.4 mg/dL (0.2-1.0) Microbiology Microbiology Date/Time Source Procedure Growth Status 01/22/24 04:05 Nose MRSA Screen - Final Complete Labs and/or images reviewed: Labs reviewed by me, Image(s) reviewed by me Assessment/Plan Assessment/Plan Suspected abdominal infection new comfortably patient : Rocephin Flagyl ESRD on hemodialysis consult by Dr. Valera appreciated CAD status post stents Acute COPD exacerbation Uncontrolled diabetes: Insulin sliding scale Thrombocytopenia Moderate Malnutrition Time spent 70 minutes Condition guarded Patient is full Advanced care planning time 20 minutes at bedside Plan discussed with: Patient My Orders Orders - ARIEL LANDERS MD Procedure Category Date Status Time Initiate Vte [facility] 01/22/24 In Process Prophylaxis 12:13 Date of Service: Jan 22, 2024 Billing Provider: ARIEL LANDERS MD Common Visit Codes: [id number] CARE 30-74 MIN ARIEL LANDERS MD Jan 22, 2024 14:45
--- NOTE | 2024-01-22 16:19 | DVHPN2 ---
Progress Note - Dictate Date Seen: Jan 22, 2024 Medical Necessity Reason Pt with a Central, PICC or Fol: No Subjective diarrhea has resolved vital signs Vital Sign Date Time Temp Pulse Resp B/P (MAP) Pulse Ox O2 Delivery O2 Flow Rate FiO2 01/22/24 14:39 107/62 01/22/24 13:00 98.3 70 16 95 98.3 01/22/24 08:10 Nasal Cannula* 3 32 Total Intake and Output 01/21/24 01/21/24 01/22/24 15:00 23:00 07:00 Intake Total 350 ml Balance 350 ml medications Current Medications Medications Dose Ordered Sig/Mckenzie Route Start Time Stop Time Status Last Admin Dose Admin Ondansetron HCl 4 mg Q4HP PRN IV 01/21/24 08:00 Diagnostic Test (Pha) 1 strip ACHS 01/21/24 11:30 01/22/24 11:30 1 STRIP Insulin Human Regular ACHS SC 01/21/24 11:30 01/22/24 12:40 2 UNITS Dextrose 50 ml UD PRN IV 01/21/24 08:30 Allopurinol 100 mg BID PO 01/21/24 10:00 01/22/24 10:30 100 MG Amino Acid Protein 30 ml BID PO 01/21/24 10:00 Pantoprazole Sodium 40 mg DAILY PO 01/21/24 10:00 01/22/24 10:30 40 MG Sacubitril/ Valsartan 1 tab BID PO 01/21/24 10:00 Hold 01/22/24 10:27 1 TAB Atorvastatin Calcium 80 mg HS PO 01/21/24 22:00 01/21/24 22:09 80 MG Multivit/Ca Carb/ B Cmplx/FA/Prenat 1 tab DAILY PO 01/22/24 10:00 01/22/24 10:30 1 TAB Patient Own Medication 2 puff Q12HR PO 01/21/24 22:00 Patient Own Medication 2 tab DAILY PO 01/22/24 10:00 Insulin Glargine 5 units HS SC 01/22/24 22:00 Isosorbide Dinitrate 20 mg DAILY PO 01/22/24 10:00 01/22/24 10:30 20 MG Magnesium Oxide 400 mg DAILY PO 01/22/24 10:00 01/22/24 10:29 400 MG Melatonin 10 mg HS PO 01/21/24 22:00 01/21/24 22:08 10 MG Albuterol 2.5 mg Q4HPRN PRN NEB 01/21/24 08:45 01/21/24 10:35 2.5 MG Ipratropium [place] 0.5 mg Q4HPRN PRN NEB 01/21/24 08:45 01/21/24 10:35 0.5 MG Ceftriaxone Sodium 50 ml @ 100 mls/hr DAILY@2300 IV 01/22/24 23:00 Metronidazole 100 ml @ 100 mls/hr Q8H IV 01/22/24 07:00 01/22/24 16:06 100 MLS/HR objective GENERAL: The patient is in no acute distress, alert and oriented x3. HEENT: Shows pale oral mucosa and conjunctivae. NECK: No jugular venous distention, palpable thyroid, or lymphadenopathy. LUNGS: Show diminished air entry at the bases. CARDIOVASCULAR: Shows regular rate. There is 2/6 systolic murmur. ABDOMEN: Soft, mildly distended. Bowel sounds are increased in intensity and frequency. There are no ascites. No organomegalies, no ascites. EXTREMITIES: Show no clubbing, cyanosis. There is trace edema. NEUROLOGIC: Nonfocal. laboratory and microbiology Laboratory Tests 01/22/24 09:13 01/22/24 07:53 Test 01/22/24 07:53 Range/Units Serum Glucose 98 74-106 mg/dL Assessment/Plan ASSESSMENT AND PLAN: End-stage renal disease on HD Gastroenteritis History of diabetes. Hypertension. Metabolic acidosis Anemia of CKD Hyponatremia Hyperphosphatemia Plan: HD tomorrow. will continue HD on MWF schedule while in house. (Outpatient schedule is TTS) continue antibiotics per primary team SUNNY post HD as needed. goal Hb: 10-11 g/dl Plan discussed with: Patient, Spouse, Other KEVIN OATES MD Jan 22, 2024 16:19
[2024-01-22 21:23] LABS: Urine Bacteria FEW /hpf (None Seen); Urine Blood 1+ /uL (Negative); Urine Clarity Turbid (Clear); Urine Color Light-Orange (Yellow); Urine Hyaline Cast FEW /lpf (0 - 2); Urine Protein, UAD 3+ (Negative); Urine Specific Gravity 1.018 (1.001-1.035); Urine Urobilinogen Normal (Negative); Urine WBC 10 /hpf (0 - 3); Urine pH 7.5 (5.0-9.0)
[2024-01-22] MEDS: INSULIN LANTUS (GLARGINE) 1 /0.01ml (100units/ml) SC SCH (21:53)
[2024-01-22] MEDS: cefTRIAXone 1GM/50ML D5W 50 ML IV SCH (23:27)
[2024-01-22] MEDS: HYDROcodone-ACET 5/325MG TAB PO PRN (23:27)
[2024-01-23] VITALS (8 sets, daily range): BP systolic 100–158; BP diastolic 40–78; PULSE 56–78; RESP 16–18; TEMP 97.2–98.8; O2SAT 95–98
[2024-01-23] MEDS ORDERED: SODIUM CHL 0.9% 1000 ML BAG XX ONE (07:00)
--- NOTE | 2024-01-23 10:46 | DVHPN2 ---
Reviewed: Care Plan, H&P, Labs, Medications, Previous Orders, Radiology, Other (Consultation) Changes from previous H/P or p: No Changes Objective Vitals Vital Signs Date Time Temp Pulse Resp B/P (MAP) Pulse Ox O2 Delivery O2 Flow Rate FiO2 01/23/24 09:29 125/42 01/23/24 09:00 97.5 78 16 98 97.5 01/23/24 07:50 Nasal Cannula 2.0 01/23/24 07:50 28 Intake/Output Intake and Output 01/23/24 07:00 Intake Total 2000 ml Output Total 600 ml Balance 1400 ml Intake Oral 1750 ml IV Total 250 ml Output Urine Total 600 ml General Appearance: Alert, Oriented X3, Cooperative, No acute distress HEENT: Atraumatic Lungs: Other (Decreased air entry bilateral with occasional scattered crackles) Cardiovascular: Regular rate, Normal S1, Normal S2, No murmurs Abdomen: Normal bowel sounds, Soft, Other (Diffuse tenderness) Extremities: Other (Right arm AV fistula with good bruit/thrill) Neuro: Normal speech, Cranial nerves 3-12 NL Psych/Mental Status: Mental status NL, Mood NL Medications Current Medications Medications Dose Ordered Sig/Mckenzie Route Start Time Stop Time Status Last Admin Dose Admin Ondansetron HCl 4 mg Q4HP PRN IV 01/21/24 08:00 Diagnostic Test (Pha) 1 strip ACHS 01/21/24 11:30 01/23/24 06:07 1 STRIP Insulin Human Regular ACHS SC 01/21/24 11:30 01/22/24 12:40 2 UNITS Dextrose 50 ml UD PRN IV 01/21/24 08:30 Allopurinol 100 mg BID PO 01/21/24 10:00 01/23/24 09:37 100 MG Amino Acid Protein 30 ml BID PO 01/21/24 10:00 01/23/24 09:38 30 ML Pantoprazole Sodium 40 mg DAILY PO 01/21/24 10:00 01/23/24 09:38 40 MG Sacubitril/ Valsartan 1 tab BID PO 01/21/24 10:00 Hold 01/22/24 10:27 1 TAB Atorvastatin Calcium 80 mg HS PO 01/21/24 22:00 01/22/24 21:45 80 MG Multivit/Ca Carb/ B Cmplx/FA/Prenat 1 tab DAILY PO 01/22/24 10:00 01/23/24 09:37 1 TAB Patient Own Medication 2 puff Q12HR PO 01/21/24 22:00 Patient Own Medication 2 tab DAILY PO 01/22/24 10:00 Insulin Glargine 5 units HS SC 01/22/24 22:00 01/22/24 21:53 5 UNITS Isosorbide Dinitrate 20 mg DAILY PO 01/22/24 10:00 01/22/24 10:30 20 MG Magnesium Oxide 400 mg DAILY PO 01/22/24 10:00 01/23/24 09:37 400 MG Melatonin 10 mg HS PO 01/21/24 22:00 01/22/24 21:46 10 MG Albuterol 2.5 mg Q4HPRN PRN NEB 01/21/24 08:45 01/21/24 10:35 2.5 MG Ipratropium [place] 0.5 mg Q4HPRN PRN NEB 01/21/24 08:45 01/21/24 10:35 0.5 MG Ceftriaxone Sodium 50 ml @ 100 mls/hr DAILY@2300 IV 01/22/24 23:00 01/22/24 23:27 100 MLS/HR Metronidazole 100 ml @ 100 mls/hr Q8H IV 01/22/24 07:00 01/23/24 06:13 100 MLS/HR Acetaminophen/ Hydrocodone Bitart 1 tab Q6HPRN PRN PO 01/22/24 23:30 01/23/24 06:21 1 TAB Laboratory Results Laboratory Tests 01/22/24 07:53 01/22/24 09:13 Urinalysis Test 01/22/24 20:15 Urine Color Light-orange (Yellow) Urine Clarity Turbid (Clear) H Urine pH 7.5 (5.0-9.0) Urine Specific [place] 1.018 (1.001-1.035) Urine Protein 3+ (Negative) H Urine Ketones Negative (Negative) Urine Blood 1+ /uL (Negative) H Urine Nitrite Negative (Negative) Urine Bilirubin Negative (Negative) Urine Urobilinogen Normal mg/dL (Negative) Urine Leukocyte Esterase Negative /uL (Negative) Urine RBC 6 /hpf (0 - 3) Urine WBC 10 /hpf (0 - 3) Urine Squamous Epithelial Cells Mod /hpf (<5) Urine Bacteria Few /hpf (None Seen) H Urine Hyaline Casts Few /lpf (0 - 2) Urine Glucose 2+ mg/dL (Normal) H Microbiology Microbiology Date/Time Source Procedure Growth Status 01/22/24 04:05 Nose MRSA Screen - Final Complete 01/21/24 23:20 Blood Blood Culture - Preliminary NO GROWTH AFTER 24 HOURS OF INCUBATION. Resulted Labs and/or images reviewed: Labs reviewed by me, Image(s) reviewed by me Assessment/Plan Assessment/Plan Acute gastroenteritis with colitis, improving, continue Rocephin Flagyl ESRD on hemodialysis consult by Dr. Valera appreciated CAD status post stents Acute COPD exacerbation Uncontrolled diabetes: Insulin sliding scale Thrombocytopenia Moderate Malnutrition Sangeeta test negative Time spent 65 minutes Condition guarded Patient is full Advanced care planning time 20 minutes at bedside Plan discussed with: Patient My Orders Orders - ARIEL LANDERS MD Procedure Category Date Status Time Initiate Vte EDDIE 01/22/24 In Process Prophylaxis 12:13 Pt Request For Service PT 01/22/24 Logged 15:28 Communication Order ORDERS 01/22/24 Transmitted 15:29 Pt Request For Service PT 01/22/24 Logged 16:37 Communication Order ORDERS 01/22/24 Transmitted 16:46 Urine Bacterial ANDREW 01/23/24 Logged Culture 10:42 Date of Service: Jan 23, 2024 Billing Provider: ARIEL LANDERS MD Common Visit Codes: [id number] INP/OBS CARE(HIGH) ARIEL LANDERS MD Jan 23, 2024 10:46
[2024-01-23 12:44] LABS: Hepatitis B Surface Antigen Negative (Negative)
[2024-01-23 13:08] LABS: Hepatitis C Antibody Negative (Negative)
[2024-01-23 13:58] LABS: Hepatitis A Ab IgM Negative; Hepatitis B Core IgM Negative (Negative)
--- NOTE | 2024-01-23 20:46 | DVHPN2 ---
Progress Note - Dictate Date Seen: Jan 23, 2024 Medical Necessity Reason Pt with a Central, PICC or Fol: No Subjective diarrhea has resolved vital signs Vital Sign Date Time Temp Pulse Resp B/P (MAP) Pulse Ox O2 Delivery O2 Flow Rate FiO2 01/23/24 17:00 97.4 58 16 151/40 (77) 96 97.4 01/23/24 07:50 Nasal Cannula 2.0 01/23/24 07:50 28 Total Intake and Output 01/22/24 01/22/24 01/23/24 15:00 23:00 07:00 Intake Total 1100 ml 900 ml Output Total 500 ml 100 ml Balance 600 ml 800 ml medications Current Medications Medications Dose Ordered Sig/Mckenzie Route Start Time Stop Time Status Last Admin Dose Admin Ondansetron HCl 4 mg Q4HP PRN IV 01/21/24 08:00 Diagnostic Test (Pha) 1 strip ACHS 01/21/24 11:30 01/23/24 17:03 1 STRIP Insulin Human Regular ACHS SC 01/21/24 11:30 01/22/24 12:40 2 UNITS Dextrose 50 ml UD PRN IV 01/21/24 08:30 Allopurinol 100 mg BID PO 01/21/24 10:00 01/23/24 09:37 100 MG Amino Acid Protein 30 ml BID PO 01/21/24 10:00 01/23/24 09:38 30 ML Pantoprazole Sodium 40 mg DAILY PO 01/21/24 10:00 01/23/24 09:38 40 MG Sacubitril/ Valsartan 1 tab BID PO 01/21/24 10:00 Hold 01/22/24 10:27 1 TAB Atorvastatin Calcium 80 mg HS PO 01/21/24 22:00 01/22/24 21:45 80 MG Multivit/Ca Carb/ B Cmplx/FA/Prenat 1 tab DAILY PO 01/22/24 10:00 01/23/24 09:37 1 TAB Patient Own Medication 2 puff Q12HR PO 01/21/24 22:00 Patient Own Medication 2 tab DAILY PO 01/22/24 10:00 Insulin Glargine 5 units HS SC 01/22/24 22:00 01/22/24 21:53 5 UNITS Isosorbide Dinitrate 20 mg DAILY PO 01/22/24 10:00 01/22/24 10:30 20 MG Magnesium Oxide 400 mg DAILY PO 01/22/24 10:00 01/23/24 09:37 400 MG Melatonin 10 mg HS PO 01/21/24 22:00 01/22/24 21:46 10 MG Ceftriaxone Sodium 50 ml @ 100 mls/hr DAILY@2300 IV 01/22/24 23:00 01/22/24 23:27 100 MLS/HR Metronidazole 100 ml @ 100 mls/hr Q8H IV 01/22/24 07:00 01/23/24 15:25 100 MLS/HR Acetaminophen/ Hydrocodone Bitart 1 tab Q6HPRN PRN PO 01/22/24 23:30 01/23/24 06:21 1 TAB objective GENERAL: The patient is in no acute distress, alert and oriented x3. HEENT: Shows pale oral mucosa and conjunctivae. NECK: No jugular venous distention, palpable thyroid, or lymphadenopathy. LUNGS: Show diminished air entry at the bases. CARDIOVASCULAR: Shows regular rate. There is 2/6 systolic murmur. ABDOMEN: Soft, mildly distended. Bowel sounds are increased in intensity and frequency. There are no ascites. No organomegalies, no ascites. EXTREMITIES: Show no clubbing, cyanosis. There is trace edema. NEUROLOGIC: Nonfocal. laboratory and microbiology Laboratory Tests 01/22/24 09:13 01/22/24 07:53 Test 01/22/24 07:53 Range/Units Serum Glucose 98 74-106 mg/dL Assessment/Plan ASSESSMENT AND PLAN: End-stage renal disease on HD Gastroenteritis History of diabetes. Hypertension. Metabolic acidosis Anemia of CKD Hyponatremia Hyperphosphatemia Plan: HD today. continue antibiotics per primary team SUNNY post HD as needed. goal Hb: 10-11 g/dl Plan discussed with: Patient KEVIN OATES MD Jan 23, 2024 20:46
[2024-01-24] VITALS (11 sets, daily range): BP systolic 133–164; BP diastolic 48–75; PULSE 60–70; RESP 18–20; TEMP 97.8–98.6; O2SAT 95–99
--- NOTE | 2024-01-24 14:43 | DVHPN2 ---
Reviewed: Care Plan, H&P, Labs, Medications, Previous Orders, Radiology, Other (Consultation) Changes from previous H/P or p: No Changes Objective Vitals Vital Signs Date Time Temp Pulse Resp B/P (MAP) Pulse Ox O2 Delivery O2 Flow Rate FiO2 01/24/24 09:07 133/48 01/24/24 08:00 70 18 96 Nasal Cannula* 2 28 01/24/24 07:58 98.0 98.0 Intake/Output Intake and Output 01/24/24 07:00 Intake Total 1308 ml Output Total 0 ml Balance 1308 ml Intake Oral 958 ml IV Total 350 ml Output Urine Total 0 ml # Voids 1 General Appearance: Alert, Oriented X3, Cooperative, No acute distress HEENT: Atraumatic Lungs: Other (Decreased air entry bilateral with occasional scattered crackles) Cardiovascular: Regular rate, Normal S1, Normal S2, No murmurs Abdomen: Normal bowel sounds, Soft, Other (Diffuse tenderness) Extremities: Other (Right arm AV fistula with good bruit/thrill) Neuro: Normal speech, Cranial nerves 3-12 NL Psych/Mental Status: Mental status NL, Mood NL Medications Current Medications Medications Dose Ordered Sig/Mckenzie Route Start Time Stop Time Status Last Admin Dose Admin Ondansetron HCl 4 mg Q4HP PRN IV 01/21/24 08:00 Diagnostic Test (Pha) 1 strip ACHS 01/21/24 11:30 01/24/24 12:10 1 STRIP Insulin Human Regular ACHS SC 01/21/24 11:30 01/24/24 12:15 3 UNITS Dextrose 50 ml UD PRN IV 01/21/24 08:30 Allopurinol 100 mg BID PO 01/21/24 10:00 01/24/24 09:06 100 MG Amino Acid Protein 30 ml BID PO 01/21/24 10:00 01/23/24 23:36 30 ML Pantoprazole Sodium 40 mg DAILY PO 01/21/24 10:00 01/24/24 09:07 40 MG Sacubitril/ Valsartan 1 tab BID PO 01/21/24 10:00 Hold 01/22/24 10:27 1 TAB Atorvastatin Calcium 80 mg HS PO 01/21/24 22:00 01/23/24 23:36 80 MG Multivit/Ca Carb/ B Cmplx/FA/Prenat 1 tab DAILY PO 01/22/24 10:00 01/24/24 09:06 1 TAB Patient Own Medication 2 puff Q12HR PO 01/21/24 22:00 Patient Own Medication 2 tab DAILY PO 01/22/24 10:00 Insulin Glargine 5 units HS SC 01/22/24 22:00 01/22/24 21:53 5 UNITS Isosorbide Dinitrate 20 mg DAILY PO 01/22/24 10:00 01/24/24 09:07 20 MG Magnesium Oxide 400 mg DAILY PO 01/22/24 10:00 01/24/24 09:06 400 MG Melatonin 10 mg HS PO 01/21/24 22:00 01/23/24 23:36 10 MG Ceftriaxone Sodium 50 ml @ 100 mls/hr DAILY@2300 IV 01/22/24 23:00 01/23/24 23:35 100 MLS/HR Metronidazole 100 ml @ 100 mls/hr Q8H IV 01/22/24 07:00 01/24/24 06:46 100 MLS/HR Acetaminophen/ Hydrocodone Bitart 1 tab Q6HPRN PRN PO 01/22/24 23:30 01/23/24 06:21 1 TAB Laboratory Results Laboratory Tests 01/22/24 07:53 01/22/24 09:13 Urinalysis Test 01/22/24 20:15 Urine Color Light-orange (Yellow) Urine Clarity Turbid (Clear) H Urine pH 7.5 (5.0-9.0) Urine Specific [place] 1.018 (1.001-1.035) Urine Protein 3+ (Negative) H Urine Ketones Negative (Negative) Urine Blood 1+ /uL (Negative) H Urine Nitrite Negative (Negative) Urine Bilirubin Negative (Negative) Urine Urobilinogen Normal mg/dL (Negative) Urine Leukocyte Esterase Negative /uL (Negative) Urine RBC 6 /hpf (0 - 3) Urine WBC 10 /hpf (0 - 3) Urine Squamous Epithelial Cells Mod /hpf (<5) Urine Bacteria Few /hpf (None Seen) H Urine Hyaline Casts Few /lpf (0 - 2) Urine Glucose 2+ mg/dL (Normal) H Microbiology Microbiology Date/Time Source Procedure Growth Status 01/22/24 20:15 Voided Urine Urine Culture - Preliminary Resulted 01/22/24 04:05 Nose MRSA Screen - Final Complete 01/21/24 23:20 Blood Blood Culture - Preliminary NO GROWTH AFTER 48 HOURS OF INCUBATION. Resulted Labs and/or images reviewed: Labs reviewed by me, Image(s) reviewed by me Assessment/Plan Assessment/Plan Acute gastroenteritis with colitis, improving, continue Rocephin Flagyl ESRD on hemodialysis consult by Dr. Valera appreciated CAD status post stents Acute COPD exacerbation Uncontrolled diabetes: Insulin sliding scale Thrombocytopenia Moderate Malnutrition Sangeeta test negative Time spent 65 minutes Condition guarded Patient is full Advanced care planning time 20 minutes at bedside We will discharge home on home health tomorrow Plan discussed with: Patient My Orders Orders - ARIEL LANDERS MD Procedure Category Date Status Time Dme: Hospital Bed DME 01/24/24 Transmitted 14:37 Date of Service: Jan 24, 2024 Billing Provider: ARIEL LANDERS MD Common Visit Codes: [id number] INP/OBS CARE(HIGH) ARIEL LANDERS MD Jan 24, 2024 14:43
[2024-01-24] MEDS ORDERED: ALBUTEROL SULF 2.5 MG/0.5ML(0.5%) NEB SOLN NEB PRN (14:45)
[2024-01-24] MEDS ORDERED: IPRATROPIUM BROM 0.5 MG/2.5ML INH SOL NEB PRN (14:45)
--- NOTE | 2024-01-24 18:49 | DVHPN2 ---
Progress Note - Dictate Date Seen: Jan 24, 2024 Medical Necessity Reason Pt with a Central, PICC or Fol: No Subjective diarrhea has resolved vital signs Vital Sign Date Time Temp Pulse Resp B/P (MAP) Pulse Ox O2 Delivery O2 Flow Rate FiO2 01/24/24 17:00 98.1 62 18 164/72 (102) 95 98.1 01/24/24 08:00 Nasal Cannula* 2 28 Total Intake and Output 01/23/24 01/23/24 01/24/24 15:00 23:00 07:00 Intake Total 100 ml 658 ml 550 ml Output Total 0 ml Balance 100 ml 658 ml 550 ml medications Current Medications Medications Dose Ordered Sig/Mckenzie Route Start Time Stop Time Status Last Admin Dose Admin Ondansetron HCl 4 mg Q4HP PRN IV 01/21/24 08:00 Diagnostic Test (Pha) 1 strip ACHS 01/21/24 11:30 01/24/24 17:06 1 STRIP Insulin Human Regular ACHS SC 01/21/24 11:30 01/24/24 12:15 3 UNITS Dextrose 50 ml UD PRN IV 01/21/24 08:30 Allopurinol 100 mg BID PO 01/21/24 10:00 01/24/24 09:06 100 MG Amino Acid Protein 30 ml BID PO 01/21/24 10:00 01/23/24 23:36 30 ML Pantoprazole Sodium 40 mg DAILY PO 01/21/24 10:00 01/24/24 09:07 40 MG Sacubitril/ Valsartan 1 tab BID PO 01/21/24 10:00 Hold 01/22/24 10:27 1 TAB Atorvastatin Calcium 80 mg HS PO 01/21/24 22:00 01/23/24 23:36 80 MG Multivit/Ca Carb/ B Cmplx/FA/Prenat 1 tab DAILY PO 01/22/24 10:00 01/24/24 09:06 1 TAB Patient Own Medication 2 puff Q12HR PO 01/21/24 22:00 Patient Own Medication 2 tab DAILY PO 01/22/24 10:00 Insulin Glargine 5 units HS SC 01/22/24 22:00 01/22/24 21:53 5 UNITS Isosorbide Dinitrate 20 mg DAILY PO 01/22/24 10:00 01/24/24 09:07 20 MG Magnesium Oxide 400 mg DAILY PO 01/22/24 10:00 01/24/24 09:06 400 MG Melatonin 10 mg HS PO 01/21/24 22:00 01/23/24 23:36 10 MG Ceftriaxone Sodium 50 ml @ 100 mls/hr DAILY@2300 IV 01/22/24 23:00 01/23/24 23:35 100 MLS/HR Metronidazole 100 ml @ 100 mls/hr Q8H IV 01/22/24 07:00 01/24/24 15:15 100 MLS/HR Acetaminophen/ Hydrocodone Bitart 1 tab Q6HPRN PRN PO 01/22/24 23:30 01/23/24 06:21 1 TAB Albuterol 2.5 mg Q6HPRN PRN NEB 01/24/24 14:45 Ipratropium [place] 0.5 mg Q6HPRN PRN NEB 01/24/24 14:45 objective GENERAL: The patient is in no acute distress, alert and oriented x3. HEENT: Shows pale oral mucosa and conjunctivae. NECK: No jugular venous distention, palpable thyroid, or lymphadenopathy. LUNGS: Show diminished air entry at the bases. CARDIOVASCULAR: Shows regular rate. There is 2/6 systolic murmur. ABDOMEN: Soft, mildly distended. Bowel sounds are increased in intensity and frequency. There are no ascites. No organomegalies, no ascites. EXTREMITIES: Show no clubbing, cyanosis. There is trace edema. NEUROLOGIC: Nonfocal. laboratory and microbiology Laboratory Tests 01/22/24 09:13 01/22/24 07:53 Test 01/22/24 07:53 Range/Units Serum Glucose 98 74-106 mg/dL Assessment/Plan ASSESSMENT AND PLAN: End-stage renal disease on HD Gastroenteritis History of diabetes. Hypertension. Metabolic acidosis Anemia of CKD Hyponatremia Hyperphosphatemia Plan: s/p HD yesterday Next HD on continue antibiotics per primary team SUNNY post HD as needed. goal Hb: 10-11 g/dl Dietary Evaluation Review Comments: Monitior PO intake and maintain weight Expected Outcomes/Goals: controlled DM, avoid uremic syndrome, maintain Wt Plan discussed with: Patient, Other KEVIN OATES MD Jan 24, 2024 18:49
[2024-01-25] VITALS (8 sets, daily range): BP systolic 140–164; BP diastolic 68–81; PULSE 63–81; RESP 12–18; TEMP 36.7; O2SAT 96–98
[2024-01-25] MEDS ORDERED: SODIUM CHL 0.9% 1000 ML BAG XX ONE (07:00)
[2024-01-25] MEDS ORDERED: PANT40T PO (08:06)
[2024-01-25] MEDS ORDERED: SACU1TAB PO (08:06)
[2024-01-25] MEDS ORDERED: HYDR-4902 PO (08:06)
[2024-01-25] MEDS ORDERED: NIFE1TAB30 PO (08:06)
[2024-01-25] MEDS ORDERED: CARV6.2517 PO (08:06)
[2024-01-25] MEDS ORDERED: APIX5TAB PO (08:06)
[2024-01-25] MEDS ORDERED: ATOR-507 PO (08:06)
[2024-01-25] MEDS ORDERED: ISOS1TAB28 PO (08:06)
[2024-01-25] MEDS ORDERED: ZOFR4T PO (08:06)
[2024-01-25] MEDS ORDERED: ALL100T PO (08:06)
[2024-01-25] MEDS ORDERED: CLOP75TA28 PO (08:06)
--- NOTE | 2024-01-25 08:12 | DVHDS2 ---
Discharge Summary Date of Admission Jan 21, 2024 at 07:47 Date of Discharge: Jan 25, 2024 Admitting Diagnosis Diarrhea and blood colored stools Wounds: None Labs/Diagnostic Data: Laboratory Results Test 01/25/24 06:05 01/23/24 11:28 01/22/24 20:15 01/22/24 09:13 POC Glucose 88 mg/dl (70-106) Hepatitis A IgM Antibody Negative Hepatitis B Surface Antigen Negative (Negative) Hepatitis B Core IgM Antibody Negative (Negative) Hepatitis C Antibody Negative (Negative) Urine Color Light-orange (Yellow) Urine Clarity Turbid (Clear) Urine pH 7.5 (5.0-9.0) Urine Specific [place] 1.018 (1.001-1.035) Urine Protein 3+ (Negative) Urine Ketones Negative (Negative) Urine Blood 1+ /uL (Negative) Urine Nitrite Negative (Negative) Urine Bilirubin Negative (Negative) Urine Urobilinogen Normal mg/dL (Negative) Urine Leukocyte Esterase Negative /uL (Negative) Urine RBC 6 /hpf (0 - 3) Urine WBC 10 /hpf (0 - 3) Urine Squamous Epithelial Cells Mod /hpf (<5) Urine Bacteria Few /hpf (None Seen) Urine Hyaline Casts Few /lpf (0 - 2) Urine Glucose 2+ mg/dL (Normal) White Blood Count 2.2 10^3/uL (4.4-10.8) Red Blood Count 4.12 10^6/uL (4.5-5.90) Hemoglobin 12.7 g/dL (13.5-17.5) Hematocrit 39.9 % (41.0-53.0) Mean Corpuscular Volume 96.8 fL (80.0-100.0) Mean Corpuscular Hemoglobin 30.9 pg (28.0-32.0) Mean Corpuscular Hemoglobin Concent 31.9 g/dL (32.0-36.0) Red Cell Distribution Width 15.5 % (11.8-14.3) Platelet Count 107 10^3/uL (140-450) Mean Platelet Volume 8.5 fL (6.9-10.8) Neutrophils (%) (Auto) % (37.0-80.0) Lymphocytes (%) (Auto) % (10.0-50.0) Monocytes (%) (Auto) % (0.0-12.0) Basophils (%) (Auto) % (0.0-2.0) Neutrophils # (Auto) 10 ^3/uL (1.6-8.6) Lymphocytes # (Auto) 10 ^3/uL (0.4-5.4) Monocytes # (Auto) 10 ^3/uL (0-1.3) Differential Total Cells Counted 100.0 (100) Neutrophils % (Manual) 74 (37.0-80.0) Band Neutrophils % (Manual) 0 Lymphocytes % (Manual) 18 (10.0-50.0) Monocytes % (Manual) 8 (0-12) Eosinophils % (Manual) 0 (0-7) Basophils % (Manual) 0 (0.0-2.0) Metamyelocytes % (manual) 0 Myelocytes % (Manual) 0 Promyelocytes % (Manual) 0 Blast Cells % (Manual) 0 Reactive Lymphocytes 0 Platelet Estimate Decreased Test 01/22/24 07:53 01/21/24 17:09 01/21/24 05:20 Sodium Level 133 mmol/L (136-145) Potassium Level 4.6 mmol/L (3.5-5.1) Chloride Level 100 mmol/L (98-107) Carbon Dioxide Level 22 mmol/L (20-31) Anion Gap 11 (5-15) Blood Urea Nitrogen 59 mg/dL (9-23) Creatinine 6.29 mg/dL (0.700-1.30) Glomerular Filtration Rate Calc 9 mL/min (>90) BUN/Creatinine Ratio 9.4 (10.0-20.0) Serum Glucose 98 mg/dL (74-106) Calcium Level 10.2 mg/dL (8.7-10.4) Total Bilirubin 0.4 mg/dL (0.2-1.0) Aspartate Amino Transferase (AST) 16 U/L (13-40) Alanine Aminotransferase (ALT) 19 U/L (7-40) Alkaline Phosphatase 77 U/L (46-116) Total Protein 6.0 g/dL (5.7-8.2) Albumin 3.6 g/dL (3.2-4.8) SARS-CoV-2 Antigen (Rapid) Negative (NEGATIVE) Eosinophils (%) (Auto) 1.3 % (0.0-7.0) Eosinophils # (Auto) 0.1 10 ^3/uL (0-0.8) Basophils # (Auto) 0 10 ^3/uL (0-0.2) Nucleated Red Blood Cells 0.1 % Prothrombin Time 11.4 sec (9.3-11.8) Prothrombin Time INR 1.08 (0.9-1.15) Activated Partial Thromboplast Time 29.9 SEC (24.5-34.5) Hemoglobin A1c 5.2 % A1C (<5.7) Magnesium Level 2.0 mg/dL (1.6-2.6) Triglycerides Level 90 mg/dL (< 150) Cholesterol Level 107 mg/dL (< 200) LDL Cholesterol 45 mg/dL (< 100) HDL Cholesterol 41 mg/dL (40-59) Other Laboratory Tests 01/22/24 09:13 01/22/24 07:53 Brief Hx & Hospital Course: 68-year-old male with multiple medical problems including ESRD on hemodialysis coronary artery disease status post stents COPD uncontrolled diabetes chronic thrombocytopenia gout hypercholesterolemia hypotension congestive heart failure burden from [facility] for blood in the stool and mild abdominal pain. Hemoglobin was stable patient was treated with Rocephin and Flagyl for possible gastroenteritis which has resolved he received hemodialysis while in the hospital all home medications were continued. As he [facility] no more [facility] days left, the is requesting patient to be discharged home on home health which is arranged. Reviewed all his previous home medications and transmitted to the medications to the pharmacy. Home health being arranged. General condition stable but poor at the time of discharge. He will follow up with his primary Dr and received regular dialysis through Dr. Valera Consults/Reason for consult Nephrology for dialysis Operations or Procedures CT abdomen pelvis without contrast Hemodialysis Condition at Discharge: Fair Final Diagnosis/Problems List Acute gastroenteritis with colitis, improving, continue Rocephin Flagyl ESRD on hemodialysis consult by Dr. Valera appreciated CAD status post stents Acute COPD exacerbation Uncontrolled diabetes: Insulin sliding scale Thrombocytopenia Moderate Malnutrition Sangeeta test negative Discharge Disposition: Home with Health Services Discharge Instruct/Medications Diet: Renal Activity: Light activity Follow Up/Referral: Continue all your home medications Follow up with your primary Dr in one week Follow up with Dr. Valera for your regular dialysis 39 (Time Taken for discharge summary 39 minutes) Discharge Statement: "Patient was advised to return to the ER or call 911 if any headaches, dizziness, shortness of breath, chest pain, abdominal pain, bleeding, fevers, or worsening of medical condition. Patient was counseled about treatment plan, medications, possible side effects, patientverbalized understanding. All questions were answered to the best of my ability. This discharge took greater then 30 minutes in planning, reviewing documentation, counseling the patient, and discussing with other team members." DME: Diagnosis: Patient grossly obese bed-bound unable to walk ASSESSMENT ASSESSMENT Hospital Course Uneventful Assessment Acute gastroenteritis with colitis, improving, continue Rocephin Flagyl ESRD on hemodialysis consult by Dr. Valera appreciated CAD status post stents Acute COPD exacerbation Uncontrolled diabetes: Insulin sliding scale Thrombocytopenia Moderate Malnutrition Sangeeta test negative Date of Service: Jan 25, 2024 Billing Provider: ARIEL LANDERS MD Common Visit Codes: 38544-KDW/OBS DISCH DAY >30min ARIEL LANDERS MD Jan 25, 2024 08:12
--- NOTE | 2024-01-25 18:22 | DVHPN2 ---
Progress Note - Dictate Date Seen: Jan 25, 2024 Medical Necessity Reason Pt with a Central, PICC or Fol: No Subjective diarrhea has resolved vital signs Vital Sign Date Time Temp Pulse Resp B/P (MAP) Pulse Ox O2 Delivery O2 Flow Rate FiO2 01/25/24 16:37 98.0 68 18 162/77 (105) 97 98.0 01/25/24 07:39 Nasal Cannula* 2 28 Total Intake and Output 01/24/24 01/24/24 01/25/24 15:00 23:00 07:00 Intake Total 100 ml 480 ml 580 ml Balance 100 ml 480 ml 580 ml medications Current Medications Medications Dose Ordered Sig/Mckenzie Route Start Time Stop Time Status Last Admin Dose Admin Ondansetron HCl 4 mg Q4HP PRN IV 01/21/24 08:00 Diagnostic Test (Pha) 1 strip ACHS 01/21/24 11:30 01/25/24 12:47 1 STRIP Insulin Human Regular ACHS SC 01/21/24 11:30 01/24/24 12:15 3 UNITS Dextrose 50 ml UD PRN IV 01/21/24 08:30 Allopurinol 100 mg BID PO 01/21/24 10:00 01/25/24 10:49 100 MG Amino Acid Protein 30 ml BID PO 01/21/24 10:00 01/25/24 10:49 30 ML Pantoprazole Sodium 40 mg DAILY PO 01/21/24 10:00 01/25/24 10:49 40 MG Sacubitril/ Valsartan 1 tab BID PO 01/21/24 10:00 Hold 01/22/24 10:27 1 TAB Atorvastatin Calcium 80 mg HS PO 01/21/24 22:00 01/24/24 22:23 80 MG Multivit/Ca Carb/ B Cmplx/FA/Prenat 1 tab DAILY PO 01/22/24 10:00 01/25/24 10:49 1 TAB Patient Own Medication 2 puff Q12HR PO 01/21/24 22:00 Patient Own Medication 2 tab DAILY PO 01/22/24 10:00 Insulin Glargine 5 units HS SC 01/22/24 22:00 01/24/24 22:27 5 UNITS Isosorbide Dinitrate 20 mg DAILY PO 01/22/24 10:00 01/25/24 10:51 20 MG Magnesium Oxide 400 mg DAILY PO 01/22/24 10:00 01/25/24 10:50 400 MG Melatonin 10 mg HS PO 01/21/24 22:00 01/24/24 22:24 10 MG Ceftriaxone Sodium 50 ml @ 100 mls/hr DAILY@2300 IV 01/22/24 23:00 01/25/24 00:35 100 MLS/HR Metronidazole 100 ml @ 100 mls/hr Q8H IV 01/22/24 07:00 01/25/24 17:37 100 MLS/HR Acetaminophen/ Hydrocodone Bitart 1 tab Q6HPRN PRN PO 01/22/24 23:30 01/23/24 06:21 1 TAB Albuterol 2.5 mg Q6HPRN PRN NEB 01/24/24 14:45 Cancel Ipratropium [place] 0.5 mg Q6HPRN PRN NEB 01/24/24 14:45 Cancel objective GENERAL: The patient is in no acute distress, alert and oriented x3. HEENT: Shows pale oral mucosa and conjunctivae. NECK: No jugular venous distention, palpable thyroid, or lymphadenopathy. LUNGS: Show diminished air entry at the bases. CARDIOVASCULAR: Shows regular rate. There is 2/6 systolic murmur. ABDOMEN: Soft, mildly distended. Bowel sounds are increased in intensity and frequency. There are no ascites. No organomegalies, no ascites. EXTREMITIES: Show no clubbing, cyanosis. There is trace edema. NEUROLOGIC: Nonfocal. laboratory and microbiology Laboratory Tests 01/22/24 09:13 01/22/24 07:53 Test 01/22/24 07:53 Range/Units Serum Glucose 98 74-106 mg/dL Assessment/Plan ASSESSMENT AND PLAN: End-stage renal disease on HD Gastroenteritis History of diabetes. Hypertension. Metabolic acidosis Anemia of CKD Hyponatremia Hyperphosphatemia Plan: HD today Continue HD on TTS Schedule continue antibiotics per primary team SUNNY post HD as needed. goal Hb: 10-11 g/dl Dietary Evaluation Review Comments: Monitior PO intake and maintain weight Expected Outcomes/Goals: controlled DM, avoid uremic syndrome, maintain Wt Plan discussed with: Patient KEVIN OATES MD Jan 25, 2024 18:22
== END 2024-01-25 18:25 | disposition home health service (06) | DRG 391 ==
LOC: EDBD 04:53 → ER 04:53 → TELE 07:47 → TELE-EAST 01-22 02:13
PROVIDERS: ADMIT Registered Nurse; ATTEND Family Medicine
PROC: 5A1D70Z Performance of Urinary Filtration, Intermittent, Less than 6 Hours Per Day (ICD-10-PCS; principal; 2024-01-23)
DX: A09 Infectious gastroenteritis and colitis, unspecified (principal); N18.6 End stage renal disease; E44.0 Moderate protein-calorie malnutrition; E87.1 Hypo-osmolality and hyponatremia; E87.20 Acidosis, unspecified; J44.1 Chronic obstructive pulmonary disease with (acute) exacerbation; I13.2 Hypertensive heart and chronic kidney disease with heart failure and with stage 5 chronic kidney disease, or end stage renal disease; I50.40 Unspecified combined systolic (congestive) and diastolic (congestive) heart failure; Z20.822 Contact with and (suspected) exposure to COVID-19; D63.1 Anemia in chronic kidney disease; D69.6 Thrombocytopenia, unspecified; E11.22 Type 2 diabetes mellitus with diabetic chronic kidney disease; E83.39 Other disorders of phosphorus metabolism; I95.9 Hypotension, unspecified; E86.0 Dehydration; I25.10 Atherosclerotic heart disease of native coronary artery without angina pectoris; M10.9 Gout, unspecified; E78.00 Pure hypercholesterolemia, unspecified; Z99.2 Dependence on renal dialysis; Z95.5 Presence of coronary angioplasty implant and graft; Z68.27 Body mass index [BMI] 27.0-27.9, adult; Z79.4 Long term (current) use of insulin; Z79.899 Other long term (current) drug therapy
CPT/HCPCS: 36415; 71045; 74176; 80053; 80061; 80074; 81001; 82962; 83036; 83735; 85007; 85025; 85027; 85610; 85730; 87040; 87081; 87086; 87426; 90935; 93005; 94640; 97163; 99291; G0378; J1815; J2405; J2470; J3490